=== PATIENT | male | born 1955 | race Caucasian/White ===

== ENCOUNTER 2017-11-23 19:22 | Emergency (ER) | payer SELFPAY ==
[2017-11-23 19:23] VITALS: BP 131/90; PULSE 71; RESP 16; TEMP 36.8; O2SAT 98; BMI 28.3
--- NOTE | 2017-11-23 21:22 | ED.VISSUMM ---
- ER Visit Summary Date of Service: 11/23/17 Chief Complaint: [Injury left eye] History of Present Illness: The patient is a 62 M [presents the emergency department after sustaining an injury to his left eye around 6:30 PM. Patient states he was using a cutting and edging machine when a piece of wood broke off and struck him in the left eye. Patient denies any real visual changes. Patient unsure if he has anything stuck in the eye itself. She is up-to-date on tetanus.] Physical Examination: [HEENT-PERRLA, EOMI. Cranial nerves II through XII grossly intact. TMs clear. Mucous membranes moist. No adenopathy. Left eye-patient does have erythema to the medial aspect of the conjunctiva with small sub-conjunctival hemorrhage. No foreign bodies noted in the conjunctiva. Cardiovascular-regular rate and rhythm without murmur or ectopy Lungs-clear to auscultation, chest wall stable without crepitus or subcu emphysema Abdomen-normoactive bowel sounds, soft, nontender, no rebound or rigidity, no peritoneal signs. Extremities-intact ?4, normal range of motion, normal pulses, atraumatic] Test Results: [Patient's eye pressure was 17 in the left eye.] Emergency Department Course and Treatment: [Left eye-tetracaine was instilled and the eye was stained with floor seen with no evidence of corneal abrasion noted. I do not appreciate any foreign bodies. Eyelids were everted no foreign bodies noted.] I see no evidence of globe rupture or foreign body. Treatment Plan: [Patient was started on gentamicin ophthalmic drops in case was discussed with Dr. Paez who is on for ophthalmology who asked the patient call their office tomorrow to be evaluated.] Disposition: [Discharged home in stable condition.] Impression: [Contusion left eye] This note was generated with [employer] dictation software. It may contain incorrect words, spelling, and punctuation that were not noted in review of the chart prior to signing ED Disposition - Plan for ED Patient: Chief Complaint: Foreign Body Referrals: Justin Garcia III, MD [Primary Care Provider] -
--- NOTE | 2017-11-23 21:26 | ED.DCSUM_ITS ---
- ER Visit Summary Date of Service: 11/23/17 Chief Complaint: [Injury left eye] History of Present Illness: The patient is a 62 M [presents the emergency department after sustaining an injury to his left eye around 6:30 PM. Patient states he was using a cutting and edging machine when a piece of wood broke off and struck him in the left eye. Patient denies any real visual changes. Patient unsure if he has anything stuck in the eye itself. She is up-to-date on tetanus.] Physical Examination: [HEENT-PERRLA, EOMI. Cranial nerves II through XII grossly intact. TMs clear. Mucous membranes moist. No adenopathy. Left eye- patient does have erythema to the medial aspect of the conjunctiva with small sub-conjunctival hemorrhage. No foreign bodies noted in the conjunctiva. Cardiovascular-regular rate and rhythm without murmur or ectopy Lungs-clear to auscultation, chest wall stable without crepitus or subcu emphysema Abdomen-normoactive bowel sounds, soft, nontender, no rebound or rigidity, no peritoneal signs. Extremities-intact ?4, normal range of motion, normal pulses, atraumatic] Test Results: [Patient's eye pressure was 17 in the left eye.] Emergency Department Course and Treatment: [Left eye-tetracaine was instilled and the eye was stained with floor seen with no evidence of corneal abrasion noted. I do not appreciate any foreign bodies. Eyelids were everted no foreign bodies noted.] I see no evidence of globe rupture or foreign body. Treatment Plan: [Patient was started on gentamicin ophthalmic drops in case was discussed with Dr. Paez who is on for ophthalmology who asked the patient call their office tomorrow to be evaluated.] Disposition: [Discharged home in stable condition.] Impression: [Contusion left eye] This note was generated with [employer] dictation software. It may contain incorrect words, spelling, and punctuation that were not noted in review of the chart prior to signing ED Disposition - Plan for ED Patient: Chief Complaint: Foreign Body Referrals: Justin Garcia III, MD [Primary Care Provider] -
--- NOTE | 2017-11-23 21:29 | ED.DEP ---
ED Disposition - Plan for ED Patient: Chief Complaint: Foreign Body Instructions: ED Contusion Eye Referrals: Justin Garcia III, MD [Primary Care Provider] - Marcelino Paez MD [STAFF PHYSICIAN] - 1 Day
[2017-11-23] MEDS: Gentamicin Sulfate 1 OPTH.BTL 2 DRP LEFT EYE (21:41)
[2017-11-23] MEDS: Tetracaine 0.5% Ophthalmic Bottle 1 DRP LEFT EYE (21:42)
== END 2017-11-23 21:43 | disposition home or self-care (01) ==
PROVIDERS: Emergency Provider Emergency Medicine; Family Provider Family Medicine; PCP Family Medicine
DX: S05.12XA Contusion of eyeball and orbital tissues, left eye, initial encounter (principal); W22.8XXA Striking against or struck by other objects, initial encounter; Y93.89 Activity, other specified; Y92.9 Unspecified place or not applicable
CPT/HCPCS: 99283

== ENCOUNTER 2020-05-26 18:33 | Emergency (ER) | payer MEDICARE, BC, SELFPAY ==
[2020-05-26 18:34] VITALS: BP 108/76; PULSE 76; RESP 20; TEMP 37.3; O2SAT 95; BMI 27.8
--- NOTE | 2020-05-26 19:02 | ED.VIS.GEN ---
History of Present Illness Chief Complaint: Fever Informant: Patient Narrative: Patient is a 64-year-old previously healthy male who presents to the emergency department for subjective fever/chills and difficulty urinating. Symptoms have been present over the past 3 days. No known sick contacts. He denies any other infectious symptoms including any headache, neck stiffness, earache, sore throat, cough, diarrhea or skin rash. He denies any hematuria or dysuria. He states it is his difficulty getting a stream started. No known history of prostate issues. He denies any known Covid exposures. He states he did receive both vaccines a few weeks prior. He has been taking aspirin at home for his symptoms which has not been giving much relief. He denies any previous surgeries. Denies smoking, drinking or drug use. Past Medical History - Allergies and Home Meds Allergies/Adverse Reactions: Allergies Penicillins Allergy (Verified 05/26/20 18:38) Anaphylaxis Primary Care Physician: Justin Garcia III, MD [Primary Care Provider] - Oliverio Gregorio MD [STAFF PHYSICIAN] - 1 Day Prior records reviewed: Yes Past Medical History: None Surgical History: no surgical history Smoking Status: Never smoker Review of Systems All systems negative except as indicated General: Reports: Chills, Fever. Denies: Sweats Eyes: Denies: Visual changes - bilaterally, Diplopia ENT: Denies: Rhinorrhea, Sore throat Cardiovascular: Denies: Chest pain, Palpitations Respiratory: Denies: Dyspnea, Cough, Dyspnea on exertion Gastrointestinal: Denies: Abdominal pain, Nausea, Vomiting, Diarrhea Genitourinary: Reports: - - Difficulty urinating. Denies: Dysuria, Hematuria, Frequency Musculoskeletal: Denies: Back pain, Extremity Pain Skin: Denies: Rash, Wounds Neurological: Denies: Headache, Weakness, Numbness Physical Exam Vital Signs/Narrative: Vital Signs Temp Pulse Resp BP Pulse Ox 05/26/20 18:34 99.1 F 76 20 H 108/76 95 Inital Vital Signs reviewed: Yes General: Well nourished, Well developed, No Acute Distress Head: Normocephalic, Atraumatic Eyes: Perrl, EOMI ENT: Moist mucous membranes, No rhinorrhea, TM's clear Neck: Supple, Nontender, No lymphadenopathy Cardiovascular: Regular rate, Regular rhythm, No murmurs Respiratory: No distress, CTA bilaterally Abdomen: Soft, Nontender, Nondistended, Normal bowel sounds Back: Nontender, Normal Inspection. Negative for: CVA tenderness, Spinal tenderness Extremities: Nontender, No edema Skin: Normal color, No rash Neurological: Alert, Normal Strength, Normal Sensation Psychological: Normal affect, Normal Mood Diagnostic/Tx/Re-eval - Medical Decision Making Patient presents to the ED for subjective fevers and chills. He is also having difficulty urinating. Upon arrival to the emergency department he has a temperature of 99.1. The rest of his vitals are within normal limits. He is in no acute distress. No external signs of infection noted. Given the difficulty urinating I did recommend lab work to check blood count as well as electrolyte and kidney function. Will check a urinalysis to evaluate for evidence of infection. Patient did void and only got a few drops of urine out. Post void bladder scan showed approximately 150 cc of urine. That time indwelling Duenas catheter was placed for urinary retention. Did not show any evidence of urinary tract infection on urinalysis. He did get a Covid test done earlier today which was negative and has the PCR test pending. His lab work did not reveal any significant acute abnormality including any high white blood cell count. This time recommend discharge home. He can take ibuprofen and Tylenol for his symptoms. Did advise he monitor his temperature at home. If he develops any symptoms otherwise he can return to the emergency department for further evaluation and management. He is agreeable with this plan. Discharged home in stable condition. He is given urology for follow-up. All questions answered. ED Disposition - Plan for ED Patient: Disposition: Home or Assisted Living Diagnosis: Urinary retention, Subjective fever Instructions: ED FUO Adult, ED Duenas Catheter, Care, ED Urinary Retention, Male Referrals: Justin Garcia III, MD [Primary Care Provider] - Oliverio Gregorio MD [STAFF PHYSICIAN] - 1 Day
[2020-05-26 19:14] LABS: Absolute Lymphocyte Count 0.65 X10^3/uL (0.83-4.51); Absolute Neutrophil Count 8.9 X10^3/uL (2.0-7.7); Basophil# 0.01 X10^3/uL; Basophil% 0.1 % (0-1); Hematocrit 42.8 % (40-54); Hemoglobin 14.6 g/dL (13.0-16.5); Lymphocyte # 0.65 X10^3/ul (4.0); Lymphocyte % 5.8 % (19-41); Mean Corp Hgb Conc 34.1 g/dL (32-36); Mean Corpuscular Hgb 31.5 pg (27.0-32.0); Mean Corpuscular Volume 92.2 fL (80-94); Mean Platelet Vol. 10.8 fl (6.2-12.0); Monocyte# 1.57 X10^3/uL; NRBC Flagged by Analyzer 0 % (0-5); Neutrophil # 8.91 X10^3/uL (2.7-7.7); Neutrophil % 79.7 % (47-70); POSITIVE DIFFERENTIAL YES; Platelet Count 131 K/mm3 (150-450); RBC Distribution Width CV 11.9 % (11.6-14.6); RBC Distribution Width SD 40.6 fl (35.1-43.9); Red Blood Count 4.64 M/mm3 (4.6-6.2); White Blood Count 11.2 K/mm3 (4.4-11.0)
[2020-05-26 19:16] VITALS: BP 114/70; PULSE 69; RESP 19; O2SAT 98
[2020-05-26 19:16] LABS: Differential Indicated SCAN CRITERIA MET
[2020-05-26 19:24] LABS: Anion Gap 7 (5-15); BUN 23 mg/dL (7-18); BUN/Creat Ratio 19.8 RATIO (10-20); Calcium,Total 8.9 mg/dL (8.5-10.1); Chloride 100 mmol/L (98-107); Creatinine, Serum 1.16 mg/dL (0.70-1.30); EST Glomerular Filtration Rate 67 mL/min (>60); Est Glom Filt Rate - Afr Amer 81 mL/min (>60); Estimated Creatinine Clearance 71.75 ml/min; Glucose 132 mg/dL (74-106); Potassium 3.8 mmol/L (3.5-5.1); Sodium Level 134 mmol/L (136-145)
[2020-05-26 19:43] VITALS: BP 114/70; PULSE 86; RESP 19; TEMP 37.3; O2SAT 98
[2020-05-26 19:46] LABS: Differential Comment SCANNED
[2020-05-26 19:51] LABS: Color, Urine Yellow (Yellow); Glucose, Dipstick Normal (Normal); Ketone-Dipstick 15 mg/dl (Negative); Leukocyte Esterase-Dipstick 25 /ul (Negative); Nitrite-Dipstick Negative (Negative); Occult Blood-Urine 25 /ul (Negative); Protein-Dipstick 100 mg/dl (Negative); Urine Bilirubin Dipstick Negative (Negative); Urine Clarity Sl. Cloudy (Clear); Urine Urobilinogen 1 mg/dl (Normal)
[2020-05-26 19:57] LABS: Red Blood Cells-Urine 0-5 SEEN /hpf (0-5); White Blood Cells 0-5 SEEN /hpf (0-5)
[2020-05-26 19:58] LABS: Squamous Epithelial Cells - UA 0-5 SEEN /hpf (0-5)
[2020-05-26 19:59] LABS: Bacteria RARE /hpf (None Seen); Mucous, Urine 1+ /hpf (<or=2+)
[2020-05-26 20:00] LABS: Renal Epithelial Cells 0 SEEN /hpf (0-5)
[2020-05-26 20:07] VITALS: BP 101/58; PULSE 86; RESP 19; TEMP 37.2; O2SAT 97
[2020-05-26 20:28] VITALS: BP 110/70; PULSE 78; RESP 19; TEMP 37.2; O2SAT 97
[2020-05-27 13:46] LABS: Pathologist Review Reviewed
== END 2020-05-26 20:32 | disposition home or self-care (01) ==
PROVIDERS: Emergency Provider Emergency Medicine; PCP Family Medicine
DX: R33.9 Retention of urine, unspecified (principal); R50.9 Fever, unspecified
CPT/HCPCS: 51702; 80048; 81001; 85025; 99283; A4216

== ENCOUNTER 2021-03-11 14:21 | Inpatient (IN) | payer MEDICARE, BC, SELFPAY ==
[2021-03-11] VITALS (8 sets, daily range): BP systolic 98–119; BP diastolic 68–71; PULSE 75–96; RESP 16–20; TEMP 36.9–39; O2SAT 96–97; BMI 28.3; BMI 28.2
--- NOTE | 2021-03-11 14:46 | EX.ED.DYSGE1 ---
HPI History of Present Illness Chief Complaint: Fever Informant: patient Narrative Narrative: Reports fatigue 2 days ago yesterday nausea and vomiting x1 and dysuria. Today at urgent care additional vomiting. No hematemesis. Nonbloody stools. No sick contacts. No cough. No loss of taste or smell. Reports fever today at urgent care, no antipyretics taken. States COVID vaccinated with the booster this past December. Also has had influenza vaccination. Reports myalgias. Reports history of prostatitis last year however had pain with bowel movements then. Denies any pain currently. Has follow-up up with Dr. Gallo. Allergy to penicillin causing anaphylaxis. Denies taking any daily medications. [facility] Medical History (Updated 03/11/21 @ 23:[address] Sandip Gentile DO) BPH (benign prostatic hyperplasia) Home Medications NK 05/26/20 [History Last Taken Unknown] Allergy/AdvReac Type Severity Reaction Status Date / Time Penicillins Allergy Anaphylaxis Verified 05/26/20 18:38 Social History (Updated 03/11/21 @ 17:[address] Renetta Posey DO) Smoking Status: Never smoker alcohol intake: current details: 2-3 beers nightly substance use type: does not use ROS ROS ED Constitutional Constitutional ED: Reports fever(s); Denies chills or sweats Eyes Eyes: Denies change in vision ENT ENT ED: Denies dysphagia or sore throat Cardiovascular Cardiovascular: Denies chest pain, leg edema, palpitations or racing heartbeat Respiratory/Chest Respiratory/Chest: Denies cough, dyspnea or dyspnea on exertion Gastrointestinal Gastrointestinal: Reports diarrhea, nausea and vomiting; Denies abdominal pain Genitourinary Genitourinary ED: Reports dysuria; Denies hematuria or urinary frequency Musculoskeletal Musculoskeletal: Denies back pain, extremity pain or neck pain Integumentary Denies rash or wounds Neurologic Neurologic: Denies headache(s), paresthesias or weakness EXAM Physical Exam Const Vital Signs: 03/11/21 14:22 03/11/21 15:04 03/11/21 16:25 Temperature 98.5 F 102.2 F H Temperature Source Temporal Oral Pulse Rate 93 Respiratory Rate 16 Respiratory Effort Normal Non-Labored Blood Pressure 98/70 Blood Pressure Mean 79 Pulse Ox 97 Oxygen Delivery Method Room Air 03/11/21 16:55 Temperature 102.2 F H Temperature Source Oral Pulse Rate 95 Respiratory Rate 18 Respiratory Effort Blood Pressure 110/68 Blood Pressure Mean 82 Pulse Ox 96 Oxygen Delivery Method Room Air Positive well nourished and well developed General Appearance ED: well developed and NAD HEENT Reports dry mucous membranes normocephalic and atraumatic Mouth ED: Yes dry mucous membranes Mouth: dry mucous membranes Eyes PERRL, EOMs intact bilaterally and conjunctivae normal General Eye ED: Yes normal appearance of both eyes Neck no lymphadenopathy and supple General: Negative for tenderness Chest Wall Chest: Negative for tenderness Resp normal respiratory effort and normal air movement Effort and Inspection: symmetric chest movement; Negative for respiratory distress Cardio regular rate, regular rhythm and no murmurs Peripheral Pulses: pulses 2+ throughout GI normal to inspection, nondistended, normoactive bowel sounds and non-tender Palpation: Negative for guarding or rebound tenderness present Back/Spine no CVA tenderness and no thoracic nor lumbar tenderness Extremity normal to inspection General Extremety ED: Negative for edema or tenderness General Extremity: Negative for edema Neuro oriented x3 and no sensory deficits noted Sensorium / Orientation: awake and alert Skin no rashes or lesions noted and no wounds MDM MDM MDM Narrative Medical decision making narrative: Patient presenting with dysuria fatigue myalgias and subjective fevers. He is COVID vaccinated with influenza vaccination. I did check both which returned negative. White count returned at 24.6. Creatinine at 1.7. Urine did note infections culture sent. Lactic acid blood cultures added. Lactic acid returned at 2.5. He is meeting severe sepsis criteria. He denies any pain with bowel movements for concerns of prostatitis at this time. This is his symptoms last year. Blood pressure borderline on arrival at 90/70 with fluids he is improving. Spiked a fever of 102 in the ED he was given Tylenol. Anaphylaxis to penicillin therefore was given Levaquin IV. I spoke with hospitalist Dr. Norris for admission to PCU. He is stable for the medical floor. Lab Data Attestation: I reviewed the patient's lab results. Labs: Laboratory Results - last 24 hr 03/11/21 03/11/21 03/11/21 14:53 14:53 16:17 WBC 24.6 H RBC 4.41 L Hgb 13.9 Hct 40.7 MCV 92.3 MCH 31.5 MCHC 34.2 RDW Std Deviation 43.5 RDW Coeff of Jj 13.0 Plt Count 145 L MPV 11.0 Immature Gran % (Auto) 3.900 H Neut % (Auto) 87.4 H Lymph % (Auto) 2.2 L [place] % (Auto) 6.3 Eos % (Auto) 0.0 Baso % (Auto) 0.2 Absolute Neuts (auto) 21.5 H Absolute Lymphs (auto) 0.54 L Nucleated RBC % 0 Sodium 137 Potassium 4.4 Chloride 102 Carbon Dioxide 27.0 Anion Gap 8 BUN 22 H Creatinine 1.74 H Estim Creat Clear Calc 47.20 Est GFR (MDRD) Af Amer 51 L Est GFR (MDRD) Non-Af 42 L BUN/Creatinine Ratio 12.6 Glucose 107 H Lactic Acid Calcium 8.7 Urine Color Yellow Urine Clarity Clear Urine pH 6.0 Ur Specific [place] 1.015 Urine Protein 100 H Urine Glucose (UA) Normal Urine Ketones Negative Urine Occult Blood 150 H Urine Nitrite Positive H Urine Bilirubin Negative Urine Urobilinogen Normal Ur Leukocyte Esterase 100 H Urine RBC 0-5 SEEN Urine WBC 10-25 SEEN Ur Squamous Epith Cells 0-5 SEEN Urine Bacteria 2+ Urine Mucus 0 SEEN 03/11/21 16:17 WBC RBC Hgb Hct MCV MCH MCHC RDW Std Deviation RDW Coeff of Jj Plt Count MPV Immature Gran % (Auto) Neut % (Auto) Lymph % (Auto) [place] % (Auto) Eos % (Auto) Baso % (Auto) Absolute Neuts (auto) Absolute Lymphs (auto) Nucleated RBC % Sodium Potassium Chloride Carbon Dioxide Anion Gap BUN Creatinine Estim Creat Clear Calc Est GFR (MDRD) Af Amer Est GFR (MDRD) Non-Af BUN/Creatinine Ratio Glucose Lactic Acid 2.5 H* Calcium Urine Color Urine Clarity Urine pH Ur Specific [place] Urine Protein Urine Glucose (UA) Urine Ketones Urine Occult Blood Urine Nitrite Urine Bilirubin Urine Urobilinogen Ur Leukocyte Esterase Urine RBC Urine WBC Ur Squamous Epith Cells Urine Bacteria Urine Mucus Critical Care Time Critical Care Time: Yes Critical care time (excluding procedures): 30-74 minutes, Discussing w/Consultants, Arranging Admission or Transfer, Performing Direct Patient Care at Bedside and - (41 minutes) Discharge Plan Dx/Rx/DC Orders Clinical Impression: Severe sepsis, UTI (urinary tract infection), LUC (acute kidney injury), Fever Disposition Disposition: Acute Care [facility] Discharge Date/Time: 03/11/21 18:32
[2021-03-11] MEDS: 0.9% Normal Saline 1,000 ML 1000 ML IV (14:55)
[2021-03-11 15:03] LABS: Absolute Lymphocyte Count 0.54 X10^3/uL (0.83-4.51); Absolute Neutrophil Count 21.5 X10^3/uL (2.0-7.7); Basophil# 0.04 X10^3/uL; Basophil% 0.2 % (0-1); Hematocrit 40.7 % (40-54); Hemoglobin 13.9 g/dL (13.0-16.5); Lymphocyte # 0.54 X10^3/ul (0.83-4.51); Lymphocyte % 2.2 % (19-41); Mean Corp Hgb Conc 34.2 g/dL (32-36); Mean Corpuscular Hgb 31.5 pg (27.0-32.0); Mean Corpuscular Volume 92.3 fL (80-94); Monocyte# 1.54 X10^3/uL; Monocyte% 6.3 % (0-10); NRBC Flagged by Analyzer 0 % (0-5); Neutrophil # 21.51 X10^3/uL (2.7-7.7); Neutrophil % 87.4 % (47-70); POSITIVE DIFFERENTIAL YES; Platelet Count 145 K/mm3 (150-450); RBC Distribution Width SD 43.5 fl (35.1-43.9); Red Blood Count 4.41 M/mm3 (4.6-6.2); White Blood Count 24.6 K/mm3 (4.4-11.0)
[2021-03-11 15:18] LABS: Anion Gap 8 (5-15); BUN 22 mg/dL (7-18); BUN/Creat Ratio 12.6 RATIO (10-20); Calcium,Total 8.7 mg/dL (8.5-10.1); Chloride 102 mmol/L (98-107); Creatinine, Serum 1.74 mg/dL (0.70-1.30); EST Glomerular Filtration Rate 42 mL/min (>60); Est Glom Filt Rate - Afr Amer 51 mL/min (>60); Glucose 107 mg/dL (74-106); Potassium 4.4 mmol/L (3.5-5.1); Sodium Level 137 mmol/L (136-145)
--- NOTE | 2021-03-11 16:14 | CM.ED ---
SW Note Referral Source: Case Find Referral Reason: No PCP SW met with patient. Patient has no PCP. SW provided patient with [facility] Healthcare Provider Directory and encouraged him to contact MD for primary care provider. No further SW needs. SW remains available. Carla ZAPATA
[2021-03-11 16:27] LABS: Mucous, Urine 0 SEEN /hpf (<or=2+)
[2021-03-11 16:31] LABS: Color, Urine Yellow (Yellow); Glucose, Dipstick Normal (Normal); Ketone-Dipstick Negative (Negative); Leukocyte Esterase-Dipstick 100 /ul (Negative); Nitrite-Dipstick Positive (Negative); Occult Blood-Urine 150 /ul (Negative); Protein-Dipstick 100 mg/dl (Negative); Specific Gravity, Urine 1.015 (1.002-1.030); Urine Bilirubin Dipstick Negative (Negative); Urine Clarity Clear (Clear); Urine Urobilinogen Normal (Normal)
[2021-03-11 16:39] LABS: Red Blood Cells-Urine 0-5 SEEN /hpf (0-5); White Blood Cells 10-25 SEEN /hpf (0-5)
[2021-03-11 16:40] LABS: Bacteria 2+ /hpf (None Seen); Squamous Epithelial Cells - UA 0-5 SEEN /hpf (0-5)
[2021-03-11] MEDS: Acetaminophen 500 MG Tablet 1000 MG PO (16:52)
[2021-03-11] MEDS: levoFLOXacin IV 750 MG/150 ML BAG 100 MG IV (16:52)
[2021-03-11 16:57] LABS: Lactic Acid 2.5 mmol/L (0.4-1.9)
[2021-03-11] MEDS: 0.9% Normal Saline 1,000 ML 150 ML IV (17:21)
--- NOTE | 2021-03-11 17:21 | NURSING ---
PCU KELBY SEVERE SEPSIS, LUC, UTI
[2021-03-11] MEDS: Ondansetron 4 MG/2 ML Vial IV (17:22)
--- NOTE | 2021-03-11 17:27 | PCM.HP.STD ---
HPI - General General Date of Admission: 03/11/21 Date of Service: 03/11/21 Chief Complaint: Dysuria HPI Narrative HEATH MAK, is a 65 M who presented to the emergency department [facility] on 03/11/2021 after being sent here from urgent care. He reports that he had a fever when he presented to urgent care and therefore they instructed him to come to the emergency department. He complains of 2 days of fatigue with nausea and vomiting x2 and dysuria that started last evening. He had an additional episode of emesis at the urgent care prior to presentation. He has had fever and chills within the last 24 hours. His is at the bedside upon presentation and she notes that he is mildly fogged and slightly impaired from a cognition standpoint. He has been vaccinated for COVID and boosted in December. He complains of no abdominal pain or pressure but does complain of significant dysuria. He states that he has difficulty emptying his bladder at times at baseline and urinary frequency and that he does have a follow-up with Dr. Gallo pending. He takes no medications at baseline and really has no baseline medical issues. He does have an allergy to penicillin remotely that caused anaphylaxis. In the emergency department he had a T-max of 102.2 his heart rate was in the upper 90s, his initial blood pressure was 98/70 but after a liter of IV fluids his blood pressure improved to 110/68. His respiratory rate was normal with an oxygen saturation of 96% on room air. He had a marked leukocytosis on his CBC with a white count of 24.6 and a left shift was present. He also had a mild thrombocytopenia with a platelet count of 145. His BMP showed normal electrolytes but an elevated BUN at 22 and a serum creatinine of 1.74. These are drastically above his baseline of his second creatinine of 1-1.2. His lactic acid was mildly elevated at 2.5. UA was performed and is consistent with a urinary tract infection showing nitrites, leukoesterase, white cells, and bacteria. His rapid COVID was negative. In the emergency department he was treated with levofloxacin given his previous anaphylaxis with penicillins and request for admission was made. [facility] Medical History (Updated 03/11/21 @ 17:[address] Renetta Posey, ) BPH (benign prostatic hyperplasia) Home Medications NK 05/26/20 [History Last Taken Unknown] Allergy/AdvReac Type Severity Reaction Status Date / Time Penicillins Allergy Anaphylaxis Verified 05/26/20 18:38 Social History (Updated 03/11/21 @ 17:[address] Renetta Posey DO) Smoking Status: Never smoker alcohol intake: current details: 2-3 beers nightly substance use type: does not use ROS Constitutional Constitutional: Reports chills, fatigue, malaise and weakness; Denies anorexia, change in weight, fever(s), night sweats or other Eyes Eyes: Denies blurry vision, change in eye color, change in vision, discharge from eye(s), double vision, erythema, eye pain, loss of vision or other ENT HEENT: Denies abnormal hearing, dysphagia, ear pain, epistaxis, headache(s), hearing loss, nasal congestion, nasal discharge, post nasal drip, sinus pressure, sore throat or other Cardiovascular Cardiovascular: Denies chest pain, claudication, dyspnea on exertion, edema, lightheadedness, orthopnea, palpitations, paroxysmal nocturnal dyspnea, rapid heart rate, syncope or other Respiratory/Chest Respiratory/Chest: Denies cough, dyspnea, excessive phlegm production, hemoptysis, productive cough, shortness of breath at rest, shortness of breath with exertion, wheezing or other Gastrointestinal Gastrointestinal: Reports diarrhea, nausea and vomiting; Denies abdominal pain, coffee ground emesis, constipation, dyspepsia, hematemesis, hematochezia, loose stools, melena or other Genitourinary Genitourinary: Reports burning urination, difficulty urinating, dysuria, urinary frequency, urinary hesitancy and urinary urgency; Denies hematuria, nocturia, urinary incontinence or other Musculoskeletal Musculoskeletal: Reports myalgias; Denies arthralgias, back pain, joint pain, joint stiffness, joint swelling, neck pain or other Neurologic Neurologic: Reports confusion; Denies abnormal gait, abnormal speech, disequilibrium, dizziness, focal weakness, headache(s), numbness, paresthesias, seizure-like activity, seizures, syncope, tingling, tremor(s) or other Psychiatric Psychiatric: Denies anxiety, depression, homicidal ideation, suicidal ideation or other Endocrine Endocrinology: Denies change in body appearance, cold intolerance, excessive sweating, heat intolerance, polydipsia, polyuria or other Hematologic/Lymphatic Hematologic/Lymphatic: Denies anemia, easy bleeding, easy bruising, lymphadenopathy or other Allergic/Immunologic Allergic/Immunologic: Denies rhinitis, hives, eczemia, asthma or other Vital Signs Vital Signs Vital Signs: 03/11/21 14:22 03/11/21 15:04 03/11/21 16:25 Temperature 98.5 F 102.2 F H Temperature Source Temporal Oral Pulse Rate 93 Respiratory Rate 16 Respiratory Effort Normal Non-Labored Blood Pressure 98/70 Blood Pressure Mean 79 Pulse Ox 97 Oxygen Delivery Method Room Air 03/11/21 16:55 Temperature 102.2 F H Temperature Source Oral Pulse Rate 95 Respiratory Rate 18 Respiratory Effort Blood Pressure 110/68 Blood Pressure Mean 82 Pulse Ox 96 Oxygen Delivery Method Room Air Weight Weight: 97.522 kg Body Mass Index (BMI) 28.3 Physical Exam Const alert, oriented x3, no apparent distress, healthy appearing and well nourished Constitutional Narrative: Overweight upper middle-aged white male lying in bed, alert and oriented x3 but responses are somewhat delayed and states he is mildly confused, nontoxic but appears ill HEENT normocephalic, head/scalp atraumatic, hearing grossly normal bilaterally and oropharynx normal HEENT Narrative: Oropharynx is dry, dentition is good, Mallampati is 2 Eyes PERRL, EOMs intact bilaterally and conjunctivae normal Eyes Narrative: No scleral icterus Neck no lymphadenopathy, supple, no JVD and no carotid bruits Neck Narrative: Trachea is midline, no thrush Resp normal respiratory effort, no retractions, no use of accessory muscles and clear to auscultation bilaterally Auscultation: Negative for crackles, rales, rhonchi or wheezes Cardio regular rate, regular rhythm, S1 normal heart sound, S2 normal heart sound, no murmurs, no rub, no gallops, no clicks and no JVD GI normal to inspection, nondistended, normoactive bowel sounds, soft to palpation, non-tender and non-distended; Negative for hepatosplenomegaly Extremity no clubbing, cyanosis or edema Peripheral Pulses: Yes pulses 2+ throughout Skin no rashes or lesions noted, no wounds, skin turgor normal, no jaundice, no petechiae and no mottling Neuro oriented x3, CN's II-XII intact bilaterally and moves all extremities Neuro Narrative: Mild generalized weakness Sensorium / Orientation: awake and alert Speech: speech normal Psych affect normal Psych Narrative: Very pleasant Results Lab / Micro Data Attestation: I reviewed the patient's lab results. Result Diagrams: 03/11/21 14:53 03/11/21 14:53 Labs: Laboratory Results - last 24 hr 03/11/21 14:53: WBC 24.6 H, RBC 4.41 L, Hgb 13.9, Hct 40.7, MCV 92.3, MCH 31.5, MCHC 34.2, RDW Std Deviation 43.5, RDW Coeff of Jj 13.0, Plt Count 145 L, MPV 11.0, Immature Gran % (Auto) 3.900 H, Neut % (Auto) 87.4 H, Lymph % (Auto) 2.2 L, [place] % (Auto) 6.3, Eos % (Auto) 0.0, Baso % (Auto) 0.2, Absolute Neuts (auto) 21.5 H, Absolute Lymphs (auto) 0.54 L, Nucleated RBC % 0 03/11/21 14:53: Sodium 137, Potassium 4.4, Chloride 102, Carbon Dioxide 27.0, Anion Gap 8, BUN 22 H, Creatinine 1.74 H, Estim Creat Clear Calc 47.20, Est GFR (MDRD) Af Amer 51 L, Est GFR (MDRD) Non-Af 42 L, BUN/Creatinine Ratio 12.6, Glucose 107 H, Calcium 8.7 03/11/21 16:17: Urine Color Yellow, Urine Clarity Clear, Urine pH 6.0, Ur Specific [place] 1.015, Urine Protein 100 H, Urine Glucose (UA) Normal, Urine Ketones Negative, Urine Occult Blood 150 H, Urine Nitrite Positive H, Urine Bilirubin Negative, Urine Urobilinogen Normal, Ur Leukocyte Esterase 100 H, Urine RBC 0-5 SEEN, Urine WBC 10-25 SEEN, Ur Squamous Epith Cells 0-5 SEEN, Urine Bacteria 2+, Urine Mucus 0 SEEN 03/11/21 16:17: Lactic Acid 2.5 H* Micro: Microbiology 03/11/21 15:37 Mucosa - Nose Influenza Types A,B Direct FA (BRERY) - Final 03/11/21 14:40 Nasal Secretion SARS-CoV-2 Antigen (Rapid) - Final Assessment & Plan Assessment/Plan (1) Sepsis: (2) UTI (urinary tract infection): (3) LUC (acute kidney injury): (4) Leukocytosis: (5) Lactic acidosis: (6) Fever: (7) Metabolic encephalopathy: (8) BPH (benign prostatic hyperplasia): PLAN: Sepsis secondary to urinary tract infection -Patient presents with elevated lactic acid, relative hypotension, leukocytosis, fever, confusion, LUC consistent with sepsis -UA is consistent with infection -Urine culture and blood cultures are pending -Levaquin given in the emergency department -30cc/kg body weight--> was given 1 L already in the emergency department and therefore will complete with 2 L on the floor -Continue IV fluids at 70 cc an hour after boluses given -Will check retroperitoneal ultrasound -Outpatient will need pressors as his blood pressures are improving with volume resuscitation Lactic acidosis -Should resolve with volume resuscitation -Blood pressures are improving with IV fluids LUC -Baseline serum creatinine is between 1 and 1.2 -Current creatinine is 1.75 -Fluid boluses and maintenance fluid ordered for following boluses -Repeat BMP in a.m. -If not improved consider Duenas catheter for retention -We will check retroperitoneal ultrasound given LUC and UTI Metabolic encephalopathy -Mild -Likely related to acute infection -Should resolve with treatment and time Leukocytosis -See above -CBC in a.m. Suspected BPH -We will start Flomax -Check postvoid residual -Patient does have outpatient follow-up with Dr. Gallo per notes -? if actually Jg DVT prophylaxis -Heparin with current renal function -SCDs CODE STATUS -Full code Charges/Coding Visit Charges Inpatient E&M: 73221 Init Hosp L3
--- NOTE | 2021-03-11 17:40 | CASEMGMT ---
ADAN CM to room to meet with patient for initial transition planning/care coordination assessment. ADAN LYNCH introduced self and role at [facility]. Patient voices understanding and consents to assessment at this time. Patient's girlfriend Erin present at bedside. Patient is alert and oriented and answers all questions appropriately. Care providers, pharmacy, and demographics verified/updated at this time. PCP: Danna, states previous PCP retired. SW provided patient with [facility] Healthcare Provider Directory. Specialists: Danna Preferred Pharmacy: [facility] Insurance: Medicare & [employer] Prescription Benefit: yes Living Will/HPOA: Patient denies having LW or HPOA. 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 Patient states independent with ADLs prior to hospitalization. Smoking/ETOH: Never smoker, admits to drinking 3 beers per day Transportation: Patient drives self and denies transportation concerns. DME/HHC/SNF: Patient denies having any DME in home and denies any need for DME. Denies previous HHC or SNF stays. Patient has no concerns with going home at time of discharge. CM to follow for any discharge planning/needs. Patient voices no concerns/needs at this time. Advised patient to ask for CM if any questions/concerns/needs arise. Voices understanding. Plan: home
--- NOTE | 2021-03-11 19:23 | US_ITS ---
EXAM: US Retroperitoneal Limited, Renal CLINICAL INDICATION: 65 years old, Male; LUC- and RETENTION TECHNIQUE: Limited grayscale and color Doppler sonographic evaluation of the retroperitoneum was performed. This report was created using [employer] report [email or web address] technology. COMPARISON: None. FINDINGS: Right kidney: Unremarkable. No hydronephrosis. No shadowing calculus. No perinephric collection is demonstrated. The right kidney measures 13.4 cm in length. Left kidney: Unremarkable. No hydronephrosis. No shadowing calculus. No perinephric collection is demonstrated. The left kidney measures 12.3 cm in length. Bladder: Prevoid bladder volume is 189 and postvoid volume is 87 consistent with a post void residual. Bladder wall is somewhat trabeculated which may be due to a chronic outlet obstruction. US/Kidney and Bladder IMPRESSION: Prevoid bladder volume is 189 and postvoid volume is 87 consistent with a post void residual. Bladder wall is somewhat trabeculated which may be due to a chronic outlet obstruction. Electronically Signed: Lucas Alonso MD at 23:26 EST Tel , Service support ,
[2021-03-11 20:25] LABS: Reflex Lactate? Y
[2021-03-11] MEDS: 0.9% Normal Saline 1,000 ML 999 ML IV ×2 (21:43)
[2021-03-11 22:56] LABS: Lactic Acid 2.3 mmol/L (0.4-1.9)
[2021-03-11] MEDS: 0.9% Normal Saline 1,000 ML 75 ML IV (23:30)
[2021-03-12] VITALS (12 sets, daily range): BP systolic 107–125; BP diastolic 68–85; PULSE 81–97; RESP 16–20; TEMP 36.7–38.4; O2SAT 94–98
[2021-03-12] MEDS: Ondansetron 4 MG/2 ML Vial IV (00:55)
[2021-03-12] MEDS: Acetaminophen 325 MG Tablet 650 MG PO ×4 (00:55→20:01)
[2021-03-12 06:33] LABS: Hematocrit 37.8 % (40-54); Hemoglobin 12.5 g/dL (13.0-16.5); Mean Corp Hgb Conc 33.1 g/dL (32-36); Mean Corpuscular Hgb 31.3 pg (27.0-32.0); Mean Corpuscular Volume 94.7 fL (80-94); Mean Platelet Vol. 11.1 fl (6.2-12.0); POSITIVE COUNT YES; POSITIVE DIFFERENTIAL YES; POSITIVE MORPHOLOGY YES; Platelet Count 99 K/mm3 (150-450); RBC Distribution Width CV 13.2 % (11.6-14.6); RBC Distribution Width SD 45.3 fl (35.1-43.9); Red Blood Count 3.99 M/mm3 (4.6-6.2); White Blood Count 16.3 K/mm3 (4.4-11.0)
[2021-03-12 06:49] LABS: Differential Indicated MANUAL DIFF
[2021-03-12 06:56] LABS: ALB/GLOB Ratio 0.7 RATIO (0.9-2.4); AST(SGOT) 28 U/L (15-37); Alanine Aminotransfer ALT/SGPT 28 U/L (16-61); Albumin, Serum 2.5 g/dL (3.2-5.0); Alkaline Phosphatase 31 U/L (45-117); Anion Gap 6 (5-15); BUN 22 mg/dL (7-18); BUN/Creat Ratio 15.7 RATIO (10-20); Calcium,Total 7.7 mg/dL (8.5-10.1); Chloride 111 mmol/L (98-107); EST Glomerular Filtration Rate 54 mL/min (>60); Est Glom Filt Rate - Afr Amer 65 mL/min (>60); Estimated Creatinine Clearance 58.66 ml/min; Globulin 3.5 g/dL (2.2-4.2); Glucose 114 mg/dL (74-106); Magnesium 1.4 mg/dL (1.6-2.6); Phosphorus 2.7 mg/dL (2.5-4.9); Potassium 3.8 mmol/L (3.5-5.1); Sodium Level 138 mmol/L (136-145)
[2021-03-12 07:04] LABS: Absolute Lymphocyte Count 0.98 X10^3/uL (0.83-4.51); Absolute Neutrophil Count 13.2 X10^3/uL (2.0-7.7); Neutrophil-Segmented 54 % (47-70); Total Cells Counted 100 (MANUAL DIFF)
[2021-03-12 07:05] LABS: Lymphocyte 6 % (19-41); Metamyelocyte 4 % (0-1); Monocyte 7 % (0-10); Myelocyte 2 % (0-0); Neutrophil-Band 27 % (0-5); Platelet Estimate MOD DEC (ADEQ); Red Cell Morphology NORM C+C NORMAL (NORM C&C)
--- NOTE | 2021-03-12 07:08 | PCS.PANDOC ---
PANDEMIC DOCUMENTATION INITIATED: Date: 10/14/2020 Time: 190
--- NOTE | 2021-03-12 08:04 | PCM.RX.CS ---
Consult Pharmacy has been consulted to manage selected antiobiotic: Vancomycin Type of Consult: New start Suspected Infection: Sepsis Prior Doses of Antibiotics Received/Current Regimen: 2Gm iv x 1 on 03.12.21 @0634. Labs: Sodium 138 mmol/L (136-145) 03/12/21 05:58 Potassium 3.8 mmol/L (3.5-5.1) 03/12/21 05:58 Chloride 111 mmol/L (98-107) H 03/12/21 05:58 Carbon Dioxide 21.0 mmol/L (21.0-32.0) 03/12/21 05:58 Anion Gap 6 (5-15) 03/12/21 05:58 BUN 22 mg/dL (7-18) H 03/12/21 05:58 Creatinine 1.40 mg/dL (0.70-1.30) H 03/12/21 05:58 Est GFR (MDRD) Af Amer 65 mL/min (>60) 03/12/21 05:58 Est GFR (MDRD) Non-Af 54 mL/min (>60) L 03/12/21 05:58 BUN/Creatinine Ratio 15.7 RATIO (10-20) 03/12/21 05:58 Glucose 114 mg/dL (74-106) H 03/12/21 05:58 Microbiology: Microbiology 03/11/21 16:17 Blood Culture (Wb) - Anticubital Left Blood Culture - Preliminary 03/11/21 16:29 Blood Culture (Wb) - Anticubital Right Blood Culture - Preliminary 03/11/21 15:37 Mucosa - Nose Influenza Types A,B Direct FA (BERRY) - Final 03/11/21 14:40 Nasal Secretion SARS-CoV-2 Antigen (Rapid) - Final Weight used for dosin kg Estimated Creatinine Clearance: 59 ml/min Goal Trough: 15-20 mcg/mL Pharmacy Plan for Drug Dosing: Renal function improved from Cr 1.7 to 1.4. Will start 1gm iv q12h per protocol with trough level ordered for before 4th dose. Pharmacy Service will continue to monitor and adjust dosing as required. Follow-Up Labs: Trough Vancomycin - 03.13.21 @1730 before 1800 dose
[2021-03-12] MEDS: Heparin Injection (Vial) 5,000 UNIT/ML VIAL 5000 UNIT SC (10:02)
[2021-03-12] MEDS: levoFLOXacin IV 750 MG/150 ML BAG 100 MG IV (10:03)
[2021-03-12 13:23] LABS: PSA,Total- Diagnostic 3.33 ng/mL (0.0-4.0)
[2021-03-12 13:26] LABS: Pathologist Review Reviewed
[2021-03-12] MEDS: Vancomycin IV 1,000 MG/200 ML BAG 200 MG IV (16:59)
[2021-03-12] MEDS: 0.9% Normal Saline 1,000 ML 125 ML IV (18:04)
--- NOTE | 2021-03-12 20:00 | PN.HOSP_ITS ---
Subjective Subjective Patient was seen and examined today, talked at length with his ex-girlfriend who was in the room and she helps him out with different matters as an outpatient. Patient has been sick since Wednesday and was admitted yesterday for severe sepsis stemming from acute cystitis. Patient's white count today is 16.3, blood c ulture grew out staph aureus-urine culture also grew out Staphylococcus. Sensitivities are not back at this time. Patient is on Levaquin and vancomycin Objective Data Objective Data Vital Signs: Vital Signs Temp Pulse Resp BP Pulse Ox 98.6 F 89 16 107/74 96 03/12/21 15:41 03/12/21 15:41 03/12/21 15:41 03/12/21 15:41 03/12/21 15:41 Oxygen Delivery Method Room Air Weight: 97 kg Body Mass Index (BMI) 28.2 Intake & Output: Intake and Output for Last 24 Hours 03/10/21 03/11/21 03/12/21 23:59 23:59 23:59 Intake Total 2547.5 / 2547.5 3680.00 / 3680.00 Output Total 300 / 300 Balance 2547.5 / 2547.5 3380.00 / 3380.00 Lab / Micro Data Result Diagrams: 03/13/21 10:12 03/12/21 05:58 Labs: Laboratory Results - last 24 hr 03/11/21 21:35: Lactic Acid 2.3 H* 03/12/21 05:58: WBC 16.3 H, RBC 3.99 L, Hgb 12.5 L, Hct 37.8 L, MCV 94.7 H, MCH 31.3, MCHC 33.1, RDW Std Deviation 45.3 H, RDW Coeff of Jj 13.2, Plt Count 99 L , MPV 11.1, Neut % (Auto) Not Reportable, Absolute Neuts (auto) 13.2 H, Absolute Lymphs (auto) 0.98, Total Counted 100, Neutrophils % (Manual) 54, Band Neutrophils % 27 H, Lymphocytes % (Manual) 6 L, Monocytes % (Manual) 7, Metamyelocytes % 4 H, Myelocytes % 2 H, Diff Path Review Reviewed, Platelet Estimate MOD DEC, RBC Morphology NORM C+C 03/12/21 05:58: Sodium 138, Potassium 3.8, Chloride 111 H, Carbon Dioxide 21.0, Anion Gap 6, BUN 22 H, Creatinine 1.40 H, Estim Creat Clear Calc 58.66, Est GFR (MDRD) Af Amer 65, Est GFR (MDRD) Non-Af 54 L, BUN/Creatinine Ratio 15.7, Glucose 114 H, Calcium 7.7 L, Phosphorus 2.7, Magnesium 1.4 L, Total Bilirubin 0.90, AST 28, ALT 28, Alkaline Phosphatase 31 L, Total Protein 6.0 L, Albumin 2.5 L, Globulin 3.5, Albumin/Globulin Ratio 0.7 L 03/12/21 05:58: Total PSA 3.33 Micro: Microbiology 03/11/21 16:17 Urine, Clean Catch Urine Culture - Preliminary Staphylococcus species 03/11/21 16:17 Blood Culture (Wb) - Anticubital Left Bacteria Detection (PCR) - Final Staphylococcus aureus 03/11/21 16:17 Blood Culture (Wb) - Anticubital Left Blood Culture - Preliminary Staphylococcus aureus 03/11/21 16:29 Blood Culture (Wb) - Anticubital Right Blood Culture - Preliminary 03/11/21 15:37 Mucosa - Nose Influenza Types A,B Direct FA (BERRY) - Final 03/11/21 14:40 Nasal Secretion SARS-CoV-2 Antigen (Rapid) - Final Radiography Diagnostic Testing: Radiology Impression Renal Ultrasound 03/11/21 19:23 IMPRESSION: Prevoid bladder volume is 189 and postvoid volume is 87 consistent with a post void residual. Bladder wall is somewhat trabeculated which may be due to a chronic outlet obstruction. Electronically Signed: Lucas Alonso MD at 23:26 EST Tel , Service support , Physical Exam Const alert, oriented x3 and no apparent distress Constitutional Narrative: Patient appears fatigued General Appearance: cooperative, well kempt and well developed Orientation / Consciousness: awake, oriented to person, oriented to place and oriented to time HEENT normocephalic, head/scalp atraumatic and moist oral mucous membranes Head and Scalp: normocephalic Eyes PERRL, EOMs intact bilaterally and conjunctivae normal Neck nuchal rigidity, supple, no JVD and thyroid normal General: trachea midline Resp normal respiratory effort, no retractions, no use of accessory muscles and clear to auscultation bilaterally Auscultation: Negative for rales, rhonchi or wheezes Cardio regular rate, regular rhythm, S1 normal heart sound, S2 normal heart sound, no murmurs, no rub and no gallops GI normal to inspection, nondistended, normoactive bowel sounds, soft to palpation, non-tender and non-distended Extremity no clubbing, cyanosis or edema Skin no rashes or lesions noted General Skin Exam: no breakdown Neuro oriented x3, CN's II-XII intact bilaterally, no focal motor deficits and no sensory deficits noted Sensorium / Orientation: awake and alert Speech: speech normal Psych thought process normal and affect normal Assessment & Plan Assessment/Plan (1) Severe sepsis: PLAN: 1. Severe sepsis-secondary to staph bacteremia and cystitis-patient will continue on Levaquin and vancomycin for now, labs will be monitored, sensitivities are not back yet for the blood culture. #2 dehydration-patient's lab will be monitored, continue IV fluid administration Charges/Coding Visit Charges Inpatient E&M: 20934 Subs Hosp L2
[2021-03-13] VITALS (11 sets, daily range): BP systolic 137–158; BP diastolic 86–99; PULSE 75–180; RESP 12–18; TEMP 37.4–38.6; O2SAT 93–97
[2021-03-13] MEDS: Acetaminophen 325 MG Tablet 650 MG PO ×4 (02:26→21:21)
[2021-03-13] MEDS: 0.9% Normal Saline 1,000 ML 125 ML IV (02:35)
[2021-03-13] MEDS: Vancomycin IV 1,000 MG/200 ML BAG 200 MG IV (06:27)
[2021-03-13] MEDS: levoFLOXacin IV 750 MG/150 ML BAG 100 MG IV (09:25)
--- NOTE | 2021-03-13 10:14 | ECHOCS_ITS ---
Reason For Study: MURMUR Procedure This was a 2D Doppler, Color Flow transthoracic echocardiogram. Exam performed portable in patient room. Left Ventricle Normal LV size. The estimated ejection fraction is 55 %. Normal diastology for age. No regional wall motion abnormalities noted. Right Ventricle Normal RV size. Normal systolic function. Atria The left atrium is mildly enlarged. Normal right atrium. No doppler evidence for ASD. Mitral Valve There is mild mitral annular calcification. There is no vegetation seen on the mitral valve. There is no mitral valve stenosis. Mild (1+) mitral valve insufficiency. Tricuspid Valve No vegetations identified. There is no tricuspid stenosis. Mild tricuspid valve insufficiency. Pulmonary artery systolic pressure is 60 mmHg. Aortic Valve Trisinus/trileaflet aortic valve. There is no aortic valvular vegetation. There is no aortic stenosis. Mild (1+) aortic valve insufficiency. Pulmonic Valve No vegetations. There is no pulmonic valvular stenosis. Trivial pulmonic valve insufficiency. Great Vessels Mildly dilated aortic root. Pericardium/Pleural No pericardial effusion. MMode/2D Measurements & Calculations LVIDd: 4.5 cm IVSd: 1.2 cm Ao root diam: 4.3 cm LVIDs: 3.5 cm LVPWd: 1.2 cm RVDd: 4.6 cm FS: 21.1 % LAV(MOD-bp): 72.4 ml LVAd ap4: 41.8 cm2 LVAd ap2: 41.8 cm2 LAV(MOD-bp) Indexed: 32.8 ml/m2 LVLd ap4: 9.4 cm LVLd ap2: 10.2 cm LAV(MOD-sp2): 70.6 ml EDV(MOD-sp4): 150.5 ml EDV(MOD-sp2): 145.6 ml LAV(MOD-sp4): 69.3 ml EDV(sp4-el): 156.6 ml EDV(sp2-el): 145.1 ml LVAs ap4: 28.3 cm2 LVAs ap2: 27.2 cm2 LVLs ap4: 8.5 cm LVLs ap2: 8.3 cm ESV(MOD-sp4): 79.3 ml ESV(MOD-sp2): 77.1 ml ESV(sp4-el): 80.3 ml ESV(sp2-el): 75.9 ml EF(MOD-sp4): 47.3 % EF(MOD-sp2): 47.1 % EF(sp4-el): 48.7 % SV(MOD-sp4): 71.2 ml SV(MOD-sp2): 68.5 ml SV(sp4-el): 76.3 ml LA dimension(2D): 4.5 cm LA A4 area: 22.1 cm2 RA A4 area: 18.6 cm2 Doppler Measurements & Calculations MV E max yuniel: 100.5 cm/sec Lat Peak E' Yuniel: 13.3 cm/sec Med Peak E' Yuniel: 7.4 cm/sec MV A max yuniel: 69.1 cm/sec E/E' lat: 7.5 E/E' med: 13.5 MV E/A: 1.5 Ao V2 max: 157.4 cm/sec AI max yuniel: 448.3 cm/sec LV V1 max: 145.1 cm/sec Ao max P.9 mmHg AI max P.4 mmHg LV V1 max P.5 mmHg AI dec slope: 282.5 cm/sec2 AI P1/2t: 464.8 msec PA V2 max: 121.7 cm/sec PI end-d yuniel: 101.7 cm/sec TR max yuniel: 363.4 cm/sec TR max P.8 mmHg ECHO/Echo Complete W/ Contrast Interpretation Summary The estimated ejection fraction is 55 %. The left atrium is mildly enlarged. Mild (1+) mitral valve insufficiency. Pulmonary artery systolic pressure is 60 mmHg. Mild (1+) aortic valve insufficiency. Mildly dilated aortic root. Ordering Physician: Randal Hui Performed By: Jina Valerio, JOEY, RVT
--- NOTE | 2021-03-13 10:19 | CON.PCM.ID_ITS ---
Assessment & Plan Assessment/Plan (1) MSSA bacteremia: PLAN: severe sepsis and LUC due to mssa bacteremia - unclear source. Ucx also (+) for mssa, mild pyuria on UA. L thumb with 2 splinter hemorrhages. None on feet. Will check repeat bcx today and tomorrow and TTE. Has tolerated keflex and duricef in the past (2012 in our system), will narrow abx to cefazolin for best coverage of mssa. Has had covid vaccine x3. Will follow, thank you (2) Severe sepsis: (3) LUC (acute kidney injury): HPI Consult Data Date of Consult: 03/13/21 HPI Narrative HPI Narrative: HEATH MAK, is a 65 M who presented 03/11 with one day of fever, chills, shakes, dysuria, difficulty urinating. No sick contacts. Covid vaccine x3. No foreign material in body except for dental plate. No recent procedures, skin infections, boils, cuts, abx. No new joint pain or back pain. Came to ED, found to have LUC, severe sepsis, admitted on vanc/levaquin. Ucx and bcx with staph aureus. Feeling better, fever improved, dysuria improving. H/o reaction with PCN but has taken keflex and duricef without issue. Full ROS performed and neg except as noted above. [facility] Medical History BPH (benign prostatic hyperplasia) Home Medications NK 05/26/20 [History Last Taken Unknown] Allergy/AdvReac Type Severity Reaction Status Date / Time Penicillins Allergy Anaphylaxis Verified 03/13/21 10:19 Social History (Updated 03/11/21 @ 17:[address] Renetta Posey, ) Smoking Status: Never smoker alcohol intake: current details: 2-3 beers nightly substance use type: does not use Physical Exam Const alert and oriented x3 Constitutional Narrative: ill appearing General Appearance: cooperative Exam Limitations: no limitations HEENT normocephalic and head/scalp atraumatic Eyes PERRL and EOMs intact bilaterally Neck supple and No nodes Resp normal air movement and clear to auscultation bilaterally Cardio regular rate and regular rhythm Heart Sounds: murmur GI normal to inspection, nondistended, normoactive bowel sounds Extremity no clubbing, cyanosis or edema Extremity Narrative: No spine or joint pain. Skin Skin Narrative: L thumb with 2 splinter hemorrhages Lab / Micro Data Result Diagrams: 03/12/21 05:58 03/12/21 05:58 Labs: Laboratory Results - last 24 hr 03/12/21 05:58: Diff Path Review Reviewed 03/12/21 05:58: Total PSA 3.33 Micro: Microbiology 03/11/21 16:17 Blood Culture (Wb) - Anticubital Left Bacteria Detection (PCR) - Final Staphylococcus aureus 03/11/21 16:17 Blood Culture (Wb) - Anticubital Left Blood Culture - Pre liminary Staphylococcus aureus 03/11/21 16:29 Blood Culture (Wb) - Anticubital Right Blood Culture - Preliminary Staphylococcus aureus 03/11/21 16:17 Urine, Clean Catch Urine Culture - Final Staphylococcus aureus
[2021-03-13 10:38] LABS: Absolute Lymphocyte Count 0.28 X10^3/uL (0.83-4.51); Absolute Neutrophil Count 7.7 X10^3/uL (2.0-7.7); Basophil# 0.01 X10^3/uL; Basophil% 0.1 % (0-1); Hematocrit 33.6 % (40-54); Hemoglobin 11.4 g/dL (13.0-16.5); Lymphocyte # 0.28 X10^3/ul (0.83-4.51); Lymphocyte % 3.3 % (19-41); Mean Corp Hgb Conc 33.9 g/dL (32-36); Mean Corpuscular Hgb 31.5 pg (27.0-32.0); Mean Corpuscular Volume 92.8 fL (80-94); Mean Platelet Vol. 11.4 fl (6.2-12.0); Monocyte# 0.43 X10^3/uL; NRBC Flagged by Analyzer 0 % (0-5); Neutrophil % 89.7 % (47-70); POSITIVE COUNT YES; POSITIVE DIFFERENTIAL YES; Platelet Count 87 K/mm3 (150-450); RBC Distribution Width CV 13.1 % (11.6-14.6); RBC Distribution Width SD 44.8 fl (35.1-43.9); Red Blood Count 3.62 M/mm3 (4.6-6.2); White Blood Count 8.6 K/mm3 (4.4-11.0)
[2021-03-13 10:59] LABS: Differential Indicated SCAN CRITERIA MET
[2021-03-13 11:01] LABS: Differential Comment SCANNED
[2021-03-13 18:43] LABS: Vancomycin, Trough Level 8.3 ug/mL (5.0-15.0)
--- NOTE | 2021-03-13 19:11 | PCM.PN.HOSP ---
Subjective Subjective Patient was seen and examined today, he spiked a temperature today, his white count however was normal. Patient was seen in consultation by infectious diseases who recommended a TTE and repeat blood cultures. Spoke with the patient's friend who was in the room at time my examination, she appears to understand what I went over concerning the patient's care. Objective Data Objective Data Vital Signs: Vital Signs Temp Pulse Resp BP Pulse Ox 100.3 F H 82 16 148/88 H 95 03/13/21 15:58 03/13/21 15:58 03/13/21 15:58 03/13/21 15:58 03/13/21 15:58 Oxygen Delivery Method Room Air Weight: 97 kg Body Mass Index (BMI) 28.2 Intake & Output: Intake and Output for Last 24 Hours 03/11/21 03/12/21 03/13/21 23:59 23:59 23:59 Intake Total 2547.5 / 2547.5 3680.00 / 3680.00 4105.83 / 4105.83 Output Total 300 / 300 Balance 2547.5 / 2547.5 3380.00 / 3380.00 4105.83 / 4105.83 Lab / Micro Data Result Diagrams: 03/13/21 10:12 03/12/21 05:58 Labs: Laboratory Results - last 24 hr 03/13/21 10:12: WBC 8.6, RBC 3.62 L, Hgb 11.4 L, Hct 33.6 L, MCV 92.8, MCH 31.5, MCHC 33.9, RDW Std Deviation 44.8 H, RDW Coeff of Jj 13.1, Plt Count 87 L, MPV 11.4, Immature Gran % (Auto) 1.900 H, Neut % (Auto) 89.7 H, Lymph % (Auto) 3.3 L, [place] % (Auto) 5.0, Eos % (Auto) 0.0, Baso % (Auto) 0.1, Absolute Neuts (auto) 7.7, Absolute Lymphs (auto) 0.28 L, Nucleated RBC % 0, Differential Comment SCANNED 03/13/21 17:19: Vancomycin Trough 8.3 Micro: Microbiology 03/11/21 16:17 Blood Culture (Wb) - Anticubital Left Bacteria Detection (PCR) - Final Staphylococcus aureus 03/11/21 16:17 Blood Culture (Wb) - Anticubital Left Blood Culture - Preliminary Staphylococcus aureus 03/11/21 16:29 Blood Culture (Wb) - Anticubital Right Blood Culture - Preliminary Staphylococcus aureus 03/11/21 16:17 Urine, Clean Catch Urine Culture - Final Staphylococcus aureus 03/11/21 15:37 Mucosa - Nose Influenza Types A,B Direct FA (BERRY) - Final 03/11/21 14:40 Nasal Secretion SARS-CoV-2 Antigen (Rapid) - Final Physical Exam Const alert and oriented x3 Constitutional Narrative: Patient appears fatigued General Appearance: cooperative, well kempt and well developed Orientation / Consciousness: awake, oriented to person, oriented to place and oriented to time HEENT normocephalic and moist oral mucous membranes Eyes PERRL, EOMs intact bilaterally and conjunctivae normal Neck nuchal rigidity, supple, no JVD, thyroid normal and no carotid bruits General: trachea midline Resp normal respiratory effort and clear to auscultation bilaterally Auscultation: Negative for rales, rhonchi or wheezes Cardio regular rate, regular rhythm, no murmurs, no rub and no gallops GI normal to inspection, nondistended, normoactive bowel sounds, soft to palpation, non-tender and non-distended Extremity no clubbing, cyanosis or edema Skin no rashes or lesions noted General Skin Exam: no breakdown Neuro oriented x3, CN's II-XII intact bilaterally, no focal motor deficits and no sensory deficits noted Sensorium / Orientation: awake and alert Speech: speech normal Psych thought process normal and affect normal Assessment & Plan Assessment/Plan (1) MSSA bacteremia: (2) Severe sepsis: PLAN: 1. Severe sepsis-secondary to staph bacteremia and cystitis-patient's antibiotic coverage was changed to Ancef, infectious diseases has recommended a TTE which I will order. #2 dehydration-patient is able to take fluids adequately, his IV fluids were discontinued. Charges/Coding Visit Charges Inpatient E&M: 78536 Subs Hosp L2
[2021-03-13] MEDS: Tamsulosin HCl 0.4 MG Capsule PO (21:20)
[2021-03-13] MEDS: 0.9% Saline Lock 10 ML Syringe IV (21:21)
[2021-03-14] VITALS (11 sets, daily range): BP systolic 135–151; BP diastolic 84–99; PULSE 65–81; RESP 12–18; TEMP 36.9–37.3; O2SAT 94–98
[2021-03-14] MEDS: Acetaminophen 325 MG Tablet 650 MG PO ×3 (05:40→19:58)
[2021-03-14] MEDS: 0.9% Saline Lock 10 ML Syringe IV (05:41)
[2021-03-14 06:01] LABS: Absolute Lymphocyte Count 0.47 X10^3/uL (0.83-4.51); Absolute Neutrophil Count 6.5 X10^3/uL (2.0-7.7); Basophil# 0.01 X10^3/uL; Basophil% 0.1 % (0-1); Hematocrit 34.3 % (40-54); Hemoglobin 11.6 g/dL (13.0-16.5); Lymphocyte # 0.47 X10^3/ul (0.83-4.51); Lymphocyte % 6.1 % (19-41); Mean Corp Hgb Conc 33.8 g/dL (32-36); Mean Corpuscular Hgb 31.1 pg (27.0-32.0); Mean Platelet Vol. 11.5 fl (6.2-12.0); Monocyte# 0.71 X10^3/uL; Monocyte% 9.2 % (0-10); NRBC Flagged by Analyzer 0 % (0-5); Neutrophil # 6.51 X10^3/uL (2.7-7.7); Neutrophil % 84.3 % (47-70); POSITIVE DIFFERENTIAL YES; Platelet Count 103 K/mm3 (150-450); RBC Distribution Width SD 43.7 fl (35.1-43.9); Red Blood Count 3.73 M/mm3 (4.6-6.2); White Blood Count 7.7 K/mm3 (4.4-11.0)
[2021-03-14 06:06] LABS: Differential Indicated SCAN CRITERIA MET
[2021-03-14 06:24] LABS: Anion Gap 6 (5-15); BUN 16 mg/dL (7-18); BUN/Creat Ratio 15.2 RATIO (10-20); Calcium,Total 8.2 mg/dL (8.5-10.1); Chloride 105 mmol/L (98-107); Creatinine, Serum 1.05 mg/dL (0.70-1.30); EST Glomerular Filtration Rate 75 mL/min (>60); Est Glom Filt Rate - Afr Amer 91 mL/min (>60); Estimated Creatinine Clearance 78.21 ml/min; Glucose 111 mg/dL (74-106); Potassium 3.4 mmol/L (3.5-5.1); Sodium Level 136 mmol/L (136-145)
[2021-03-14] MEDS: Potassium Chloride Oral Tablet 20 MEQ PO (09:50)
--- NOTE | 2021-03-14 12:58 | PCM.PN.ID ---
Physical Exam Narrative Feeling better today, no fever, no n/v/d. Const alert and no apparent distress General Appearance: cooperative Resp normal air movement and clear to auscultation bilaterally Cardio regular rate and regular rhythm Heart Sounds: murmur GI soft to palpation, non-tender, non-distended and hepatosplenomegaly Extremity no clubbing, cyanosis or edema Skin no rashes or lesions noted ID ID: Route of nutrition/ use of supplements: [] Nutritional Intake: [] IV Site: [] Duenas Catheter: [] Assessment & Plan Assessment/Plan (1) MSSA bacteremia: PLAN: severe sepsis and LCU due to mssa bacteremia - unclear source. Ucx also (+) for mssa, mild pyuria on UA. L thumb with 2 splinter hemorrhages. None on feet. Will check repeat bcx today and has pending TTE. Has tolerated keflex and duricef in the past (2012 in our system), now on cefazolin for best coverage of mssa. Has had covid vaccine x3. If TTE neg, I think he will need MAGDA. Will follow (2) Severe sepsis: (3) LUC (acute kidney injury):
[2021-03-14] MEDS: Cefazolin 2 GM in 0.9% Normal Saline 100 ML IV ×2 (13:50→20:46)
[2021-03-14] MEDS: Tamsulosin HCl 0.4 MG Capsule PO (16:27)
--- NOTE | 2021-03-14 17:35 | PCM.PN.HOSP ---
Subjective Subjective Patient was seen and examined today, I talked briefly with infectious diseases who recommended the patient have a MAGDA, this will have to be set up for Wednesday. Patient's echocardiogram did not show any obvious vegetations, he does have moderate pulmonary hypertension-EF was normal. Objective Data Objective Data Vital Signs: Vital Signs Temp Pulse Resp BP Pulse Ox 98.8 F 67 12 147/99 H 96 03/14/21 16:28 03/14/21 16:28 03/14/21 16:28 03/14/21 16:28 03/14/21 16:28 Oxygen Delivery Method Room Air Weight: 97 kg Body Mass Index (BMI) 28.2 Intake & Output: Intake and Output for Last 24 Hours 03/12/21 03/13/21 03/14/21 23:59 23:59 23:59 Intake Total 3680.00 / 3680.00 4275.83 / 4275.83 1320 / 1320 Output Total 300 / 300 400 / 400 Balance 3380.00 / 3380.00 4275.83 / 4275.83 920 / 920 Lab / Micro Data Result Diagrams: 03/14/21 05:11 03/14/21 05:11 Labs: Laboratory Results - last 24 hr 03/13/21 17:19: Vancomycin Trough 8.3 03/14/21 05:11: WBC 7.7, RBC 3.73 L, Hgb 11.6 L, Hct 34.3 L, MCV 92.0, MCH 31.1, MCHC 33.8, RDW Std Deviation 43.7, RDW Coeff of Jj 13.0, Plt Count 103 L, MPV 11.5, Immature Gran % (Auto) 0.300, Neut % (Auto) 84.3 H, Lymph % (Auto) 6.1 L, [place] % (Auto) 9.2, Eos % (Auto) 0.0, Baso % (Auto) 0.1, Absolute Neuts (auto) 6.5, Absolute Lymphs (auto) 0.47 L, Nucleated RBC % 0 03/14/21 05:11: Sodium 136, Potassium 3.4 L, Chloride 105, Carbon Dioxide 25.0, Anion Gap 6, BUN 16, Creatinine 1.05, Estim Creat Clear Calc 78.21, Est GFR (MDRD) Af Amer 91, Est GFR (MDRD) Non-Af 75, BUN/Creatinine Ratio 15.2, Glucose 111 H, Calcium 8.2 L Micro: Microbiology 03/11/21 16:17 Blood Culture (Wb) - Anticubital Left Bacteria Detection (PCR) - Final Staphylococcus aureus 03/11/21 16:17 Blood Culture (Wb) - Anticubital Left Blood Culture - Final Staphylococcus aureus 03/11/21 16:29 Blood Culture (Wb) - Anticubital Right Blood Culture - Preliminary Staphylococcus aureus 03/11/21 16:17 Urine, Clean Catch Urine Culture - Final Staphylococcus aureus 03/11/21 15:37 Mucosa - Nose Influenza Types A,B Direct FA (BERRY) - Final 03/11/21 14:40 Nasal Secretion SARS-CoV-2 Antigen (Rapid) - Final Radiography Diagnostic Testing: Radiology Impression Echocardiogram 03/13/21 10:14 Interpretation Summary The estimated ejection fraction is 55 %. The left atrium is mildly enlarged. Mild (1+) mitral valve insufficiency. Pulmonary artery systolic pressure is 60 mmHg. Mild (1+) aortic valve insufficiency. Mildly dilated aortic root. Ordering Physician: Randal Hui Performed By: Jina Valerio, JOEY, RVT Physical Exam Narrative On examination he appeared in good health and spirits. Vital signs as documented. Skin warm and dry and without overt rashes. Neck without JVD, neck was supple, trachea midline, thyroid was normal. Lungs clear bilaterally, normal air movement was noted. Heart exam notable for regular rhythm, normal sounds and absence of murmurs, rubs or gallops. Abdomen unremarkable and without evidence of organomegaly, masses, or abdominal aortic enlargement. Bowel sounds are present, abdomen is not distended. Extremities nonedematous, no cyanosis was noted, no clubbing was noted. Neuro: Cranial nerves II through XII are grossly intact, no focal motor deficits were noted, sensation to light touch and pinprick intact, motor exam 5/5 throughout. Psych: Patient is alert and oriented x3, he does not appear anxious or depressed, he does not appear agitated. Assessment & Plan Assessment/Plan (1) MSSA bacteremia: (2) Severe sepsis: PLAN: 1. Severe sepsis-secondary to staph bacteremia and cystitis-patient's antibiotic coverage was changed to Ancef, infectious diseases has recommended a MAGDA which I will order. Patient's white blood cell count today was normal. #2 dehydration-patient is able to take fluids adequately, his IV fluids were discontinued. #3 BPH-patient is on Flomax, patient's PSA was normal. Charges/Coding Visit Charges Inpatient E&M: 18335 Subs Hosp L2
[2021-03-15] VITALS (12 sets, daily range): BP systolic 138–161; BP diastolic 82–98; PULSE 61–75; RESP 16–18; TEMP 36.6–37.4; O2SAT 95–98
[2021-03-15] MEDS: Acetaminophen 325 MG Tablet 650 MG PO ×4 (03:06→21:45)
[2021-03-15] MEDS: Cefazolin 2 GM in 0.9% Normal Saline 100 ML IV ×3 (05:08→21:45)
[2021-03-15] MEDS: Potassium Chloride Oral Tablet 20 MEQ PO (12:53)
[2021-03-15] MEDS: Magnesium Citrate 300 ML PO (12:53)
[2021-03-15] MEDS: 0.9% Saline Lock 10 ML Syringe IV (13:00)
--- NOTE | 2021-03-15 16:45 | PN.HOSP_ITS ---
Subjective Subjective Patient was seen and examined today, his ex-girlfriend was in the room during the time of my visit, his blood culture from 2 days ago has not resulted yet, his high temp today was 99.4. Patient appears in no distress, he does complain of having some ulcerations in his mouth-I looked in his oral cavity he is got so me areas that appear to be aphthous ulcers and overall dry mouth. I will write for some Magic mouthwash for the patient. Patient also complained of constipation, I ordered mag citrate but he was unable to drink it due to his mouth ulcers, he states he would prefer just to drink prune juice. Objective Data Objective Data Vital Signs: Vital Signs Temp Pulse Resp BP Pulse Ox 99.4 F H 71 16 145/93 H 98 03/15/21 15:14 03/15/21 15:14 03/15/21 15:14 03/15/21 15:14 03/15/21 15:14 Oxygen Delivery Method Room Air Weight: 97 kg Body Mass Index (BMI) 28.2 Intake & Output: Intake and Output for Last 24 Hours 03/13/21 03/14/21 03/15/21 23:59 23:59 23:59 Intake Total 4275.83 / 4275.83 2390 / 2390 820 / 820 Output Total 750 / 750 425 / 425 Balance 4275.83 / 4275.83 1640 / 1640 395 / 395 Lab / Micro Data Result Diagrams: 03/14/21 05:11 03/14/21 05:11 Micro: Microbiology 03/11/21 16:17 Blood Culture (Wb) - Anticubital Left Bacteria Detection (PCR) - Final Staphylococcus aureus 03/11/21 16:17 Blood Culture (Wb) - Anticubital Left Blood Culture - Final Staphylococcus aureus 03/11/21 16:29 Blood Culture (Wb) - Anticubital Right Blood Culture - Preliminary Staphylococcus aureus 03/11/21 16:17 Urine, Clean Catch Urine Culture - Final Staphylococcus aureus 03/11/21 15:37 Mucosa - Nose Influenza Types A,B Direct FA (BERRY) - Final 03/11/21 14:40 Nasal Secretion SARS-CoV-2 Antigen (Rapid) - Final Physical Exam Const alert, oriented x3, no apparent distress and healthy appearing General Appearance: cooperative, well kempt and well developed Orientation / Consciousness: awake, oriented to person, oriented to place and oriented to time HEENT normocephalic and head/scalp atraumatic HEENT Narrative: Overall oral mucosa is dry appearing, there are some superficial ulcerations noted over the hard palate noted. Head and Scalp: normocephalic Eyes PERRL, EOMs intact bilaterally and conjunctivae normal Neck nuchal rigidity, supple, no JVD and thyroid normal General: trachea midline Resp normal respiratory effort, no retractions, no use of accessory muscles and clear to auscultation bilaterally Auscultation: Negative for rales, rhonchi or wheezes Cardio regular rate, regular rhythm, S1 normal heart sound, S2 normal heart sound, no murmurs, no rub and no gallops GI normal to inspection, nondistended, normoactive bowel sounds, soft to palpation, non-tender and non-distended Extremity no clubbing, cyanosis or edema Skin no rashes or lesions noted General Skin Exam: no breakdown Neuro oriented x3, CN's II-XII intact bilaterally, no focal motor deficits and no sens ory deficits noted Sensorium / Orientation: awake and alert Speech: speech normal Psych thought process normal and affect normal Assessment & Plan Assessment/Plan (1) MSSA bacteremia: (2) Severe sepsis: PLAN: 1. Severe sepsis-secondary to staph bacteremia and cystitis- patient's antibiotic coverage was changed to Ancef, infectious diseases has recommended a MAGDA which I will order. Patient's white blood cell count today was normal. #2 dehydration-patient is able to take fluids adequately, his IV fluids were discontinued. #3 BPH-patient is on Flomax, patient's PSA was normal. #4 superficial mouth ulcerations-etiology unclear, I will place the patient on Magic mouthwash. I do not think he has thrush. Charges/Coding Visit Charges Inpatient E&M: 39195 Subs Hosp L2
[2021-03-15] MEDS: Tamsulosin HCl 0.4 MG Capsule PO (17:48)
[2021-03-15] MEDS: BMX LIQUID 180 ML PO (18:51)
[2021-03-16] VITALS (10 sets, daily range): BP systolic 147–151; BP diastolic 82–92; PULSE 61–71; RESP 12–16; TEMP 36.9–37.3; O2SAT 94–97
[2021-03-16 01:21] LABS: Magnesium 2.2 mg/dL (1.6-2.6)
[2021-03-16] MEDS: Acetaminophen 325 MG Tablet 650 MG PO ×4 (04:21→23:15)
[2021-03-16] MEDS: Cefazolin 2 GM in 0.9% Normal Saline 100 ML IV ×3 (05:59→21:55)
[2021-03-16] MEDS: 0.9% Saline Lock 10 ML Syringe IV ×2 (06:01→21:55)
--- NOTE | 2021-03-16 11:52 | PN.HOSP_ITS ---
Subjective Subjective Patient was seen and examined today, he is afebrile, he states he feels better, his blood cultures were negative. Patient will need a MAGDA performed tomorrow, if this is negative, most likely he will be able to be discharged home on oral antibiotics. Objective Data Objective Data Vital Signs: Vital Signs Temp Pulse Resp BP Pulse Ox 99.0 F 61 15 150/87 H 94 03/16/21 08:05 03/16/21 08:05 03/16/21 08:05 03/16/21 08:05 03/16/21 08:05 Oxygen Delivery Method Room Air Weight: 97 kg Body Mass Index (BMI) 28.2 Intake & Output: Intake and Output for Last 24 Hours 03/14/21 03/15/21 03/16/21 23:59 23:59 23:59 Intake Total 2390 / 2390 1780 / 1780 830 / 830 Output Total 750 / 750 425 / 425 400 / 400 Balance 1640 / 1640 1355 / 1355 430 / 430 Lab / Micro Data Result Diagrams: 03/14/21 05:11 03/14/21 05:11 Labs: Laboratory Results - last 24 hr 03/16/21 00:43: Magnesium 2.2 Micro: Microbiology 03/13/21 17:19 Blood Culture (Wb) - Right Hand Blood Culture - Preliminary No growth in 48 hours. 03/14/21 08:50 Blood Culture (Wb) - Anticubital Right Blood Culture - Preliminary No growth in 48 hours. 03/11/21 16:17 Blood Culture (Wb) - Anticubital Left Bacteria Detection (PCR) - Final Staphylococcus aureus 03/11/21 16:17 Blood Culture (Wb) - Anticubital Left Blood Culture - Final Staphylococcus aureus 03/11/21 16:29 Blood Culture (Wb) - Anticubital Right Blood Culture - Preliminary Staphylococcus aureus 03/11/21 16:17 Urine, Clean Catch Urine Culture - Final Staphylococcus aureus 03/11/21 15:37 Mucosa - Nose Influenza Types A,B Direct FA (BERRY) - Final 03/11/21 14:40 Nasal Secretion SARS-CoV-2 Antigen (Rapid) - Final Physical Exam Const alert, oriented x3, no apparent distress and healthy appearing General Appearance: cooperative, well kempt and well developed Orientation / Consciousness: awake, oriented to person, oriented to place and oriented to time HEENT normocephalic, head/scalp atraumatic and moist oral mucous membranes Head and Scalp: normocephalic Eyes PERRL, EOMs intact bilaterally and conjunctivae normal Neck nuchal rigidity, supple, no JVD and thyroid normal General: trachea midline Resp normal respiratory effort and clear to auscultation bilaterally Auscultation: Negative for rales, rhonchi or wheezes Cardio regular rate, regular rhythm, S1 normal heart sound, S2 normal heart sound, no murmurs, no rub and no gallops GI normal to inspection, nondistended, normoactive bowel sounds, soft to palpation, non-tender and non-distended Extremity no clubbing, cyanosis or edema Skin no rashes or lesions noted General Skin Exam: no breakdown Neuro oriented x3, CN's II-XII intact bilaterally, no focal motor deficits and no sensory deficits noted Sensorium / Orientation: awake and alert Speech: speech normal Psych thought process normal and affect normal Assessment & Plan Assessment/Plan (1) MSSA bacteremia: (2) Severe sepsis: PLAN: 1. Severe sepsis-secondary to staph bacteremia and cystitis- patient's antibiotic coverage was changed to Ancef, infectious diseases has recommended a MAGDA which I will order. #2 dehydration-patient is able to take fluids adequately, his IV fluids were discontinued. #3 BPH-patient is on Flomax, patient's PSA was normal. #4 superficial mouth ulcerations-etiology unclear, the patient is on Magic mouthwash. I do not think he has thrush. Charges/Coding Visit Charges Inpatient E&M: 47270 Subs Hosp L2
--- NOTE | 2021-03-16 11:54 | ECHOTEE_ITS ---
Reason For Study: Positive blood culture for MSSA Medication MAGDA probe 6VT-D (SN [id number]) passed without difficulty. No complications were noted. Versed 2 mg given slow IVP. Fentanyl 50 mcg given slow IVP. Cetacaine Topical [place] given X3 orally. Performed a rapid injection of agitated mix of 9 cc saline and 1cc air to assess for atrial septal defect. Left Ventricle Normal LV size. Left ventricular systolic function is normal. The estimated ejection fraction is 60 %. No regional wall motion abnormalities noted. Right Ventricle Normal RV size. Normal systolic function. Atria Normal atrial septum. Normal left atrium. No thrombus is detected in the left atrial appendage. Normal right atrium. Mitral Valve Normal mitral valve. Mild (1+) eccentric mitral valve insufficiency. Tricuspid Valve Normal tricuspid valve. Aortic Valve Trisinus/trileaflet aortic valve. Mild focal aortic valve thickening. Mild (1+) aortic valve insufficiency. Pulmonic Valve Normal pulmonic valve. Vessels Normal aortic root. Mild atherosclerosis of the aortic arch. The pulmonary artery is normal size. Pericardium No pericardial effusion. ECHO/Echo Transesophageal (MAGDA) Interpretation Summary Normal LV size. Left ventricular systolic function is normal. The estimated ejection fraction is 60 %. No thrombus is detected in the left atrial appendage. Mild (1+) aortic valve insufficiency. Mild focal aortic valve thickening. No vegetation or thrombus seen. Ordering Physician: German Chandra Performed By: Yudy Isbell, JOEY, RVT
[2021-03-16] MEDS: BMX LIQUID 180 ML PO ×2 (12:42→19:40)
[2021-03-16] MEDS: Tamsulosin HCl 0.4 MG Capsule PO (16:11)
[2021-03-17] VITALS (8 sets, daily range): BP systolic 152–168; BP diastolic 94–95; PULSE 62–69; RESP 15–16; TEMP 36.6–37.1; O2SAT 93–95; BMI 28.1
[2021-03-17] MEDS: Cefazolin 2 GM in 0.9% Normal Saline 100 ML IV (06:22)
[2021-03-17] MEDS: Ibuprofen 400 MG Tablet PO (08:25)
--- NOTE | 2021-03-17 08:54 | NURSING ---
Pt transported to [facility] via RN. Pt left w/ Yolanda Zayas RN in [facility]. Reported AM motrin w/ sips of water.
[2021-03-17] MEDS: BMX LIQUID 180 ML PO (12:47)
--- NOTE | 2021-03-17 13:03 | PCM.DC ---
Discharge Instructions Diet Discharge Diet: No restrictions Activity Discharge Activity: Return to Normal Activity Follow Up Care Test Results: Test results from this visit will be discussed in further detail at your follow-up appointment, if applicable. Discharge Plan Admission Admit Date/Time: 03/11/21 17:21 Primary Reason for Your Visit: severe sepsis secondary to Acute UTI Attending Provider: Naheed Wray Primary Care Provider: Care Physician,No Primary Consulting Providers: Randal Hui Instructions Additional Instructions / Restrictions: Complete your orders as prescribed. Continue to keep yourself hydrated. You need to follow-up with your primary care doctor within 1 to 2 weeks and would need repeat blood work to follow-up on your kidney function. Discharge Orders/Prescriptions Prescriptions: New linezolid 600 mg tablet 600 mg PO Q12H 10 Days Qty: 20 RF: 0 tamsulosin 0.4 mg Capsule 0.4 mg PO DAILY@1730 30 Days Qty: 30 RF: 0 Referrals / Follow Up: Care Physician,No Primary [Primary Care Provider] - Within 2 Weeks Disposition Disposition (needs filled in before D/C Order can be placed): Home, Self Care
--- NOTE | 2021-03-17 13:13 | DS.PCM_ITS ---
Providers Date of Admission: 03/11/21 Date of Discharge: 03/17/21 Primary Care Physician: Radha Primary Care Phys Consultations 03/13/21 10:05 Consult: Infectious Disease Routine Consulting Provider: Randal Hui Reason for Consult: + Staph blood culture EMERGENT Consult: No MD Notified: Yes Date Notified: 03/13/21 Time Notified: 10:06 Method of Notification: Verbal Reason For Visit: SEPSIS 2/2 UTI Diagnosis Discharge Diagnosis (1) MSSA bacteremia: Status: Acute Code(s): R78.81 - Bacteremia; B95.61 - Methicillin susceptible Staphylococcus aureus infection as the cause of diseases classified elsewhere (2) Severe sepsis: Status: Acute Code(s): A41.9 - Sepsis, unspecified organism; R65.20 - Severe sepsis without septic shock Medications at Discharge Home Medications linezolid 600 mg PO Q12H 10 Days #20 tab 03/17/21 tamsulosin 0.4 mg PO DAILY@1730 30 Days #30 cap 03/17/21 Hospital Course Operations None Procedures None Summary of Care Provided Minutes Spent on Discharge: 35 Hospital Course: This is 59-year-old male with past medical history of BPH who was admitted with fever, nausea and vomiting and dysuria ongoing for 2 days. Patient had a fever of 102.2F in the ED. he was slightly tachycardic. His white cell count was 24.6 with a left shift, his urinalysis was concerning acute UTI. Patient also had lactic acidosis which was secondary to the above. He received IV fluids and IV antibiotics. Blood cultures came back positive for MSSA. Urine cultures also grew MSSA. Patient underwent 2D echo that was unremarkable. Infectious disease were consulted. His antibiotics were switched to IV cefazolin. He underwent MAGDA on 03/1721 that was also unremarkable. Patient continued to improve and remained stable throughout his hospital stay. He was discharged to complete 10 days of linezolid. He will follow-up with his primary care doctor within 1 to 2 weeks. Physical Exam Narrative Physical exam: General: Alert, Oriented x3, Cooperative, No apparent distress, Well developed HEENT: Atraumatic Oral: Moist Mucosa Neck: Supple Lungs: Clear to auscultation Cardiovascular: HS I+II, regular, no murmurs Abdomen: Bowel Sounds Present, Soft, Non Tender Extremities: No edema Weight / BMI Weight Weight: 96.7 kg Body Mass Index (BMI) 28.1 ABG / Lab / Microbiology Data Result Diagrams: 03/14/21 05:11 03/14/21 05:11 Microbiology: Microbiology 03/13/21 17:19 Blood Culture (Wb) - Right Hand Blood Culture - Preliminary No growth in 48 hours. 03/14/21 08:50 Blood Culture (Wb) - Anticubital Right Blood Culture - Preliminary No growth in 48 hours. 03/11/21 16:17 Blood Culture (Wb) - Anticubital Left Bacteria Detection (PCR) - Final Staphylococcus aureus 03/11/21 16:17 Blood Culture (Wb) - Anticubital Left Blood Culture - Final Staphylococcus aureus 03/11/21 16:29 Blood Culture (Wb) - Anticubital Right Blood Culture - Preliminary Staphylococcus aureus 03/11/21 16:17 Urine, Clean Catch Urine Culture - Final Staphylococcus aureus 03/11/21 15:37 Mucosa - Nose Influenza Types A,B Direct FA (BERRY) - Final 03/11/21 14:40 Nasal Secretion SARS-CoV-2 Antigen (Rapid) - Final Radiography Diagnostic Testing: Radiology Impression Transesophageal Echocardiogram 03/16/21 11:54 Interpretation Summary Normal LV size. Left ventricular systolic function is normal. The estimated ejection fraction is 60 %. No thrombus is detected in the left atrial appendage. Mild (1+) aortic valve insufficiency. Mild focal aortic valve thickening. No vegetation or thrombus seen. Ordering Physician: German Chandra Performed By: Yudy Isbell RDCS, RVT D/C Instructions Discharge Diet: No restrictions Meaningful Use Info Meaningful Use Diagnoses (Choose all that apply): None applicable Discharge Plan Admission Admit Date/Time: 03/11/21 17:21 Primary Reason for Your Visit: severe sepsis secondary to Acute UTI Attending Provider: Naheed Wray Primary Care Provider: Tereza Physician,No Primary Consulting Providers: Randal Hui Instructions Additional Instructions / Restrictions: Complete your orders as prescribed. Continue to keep yourself hydrated. You need to follow-up with your primary care doctor within 1 to 2 weeks and would need repeat blood work to follow-up on your kidney function. Discharge Orders/Prescriptions Prescriptions: New linezolid 600 mg tablet 600 mg PO Q12H 10 Days Qty: 20 RF: 0 tamsulosin 0.4 mg Capsule 0.4 mg PO DAILY@1730 30 Days Qty: 30 RF: 0 Referrals / Follow Up: Care Physician,No Primary [Primary Care Provider] - Within 2 Weeks Disposition Disposition (needs filled in before D/C Order can be placed): Home, Self Care Charges/Coding Visit Charges Inpatient E&M: 79493 Disch Hosp
--- NOTE | 2021-03-17 13:58 | PN.ID_ITS ---
Physical Exam Narrative Feeling better. No fever, had MAGDA this Am. Const alert and no apparent distress General Appearance: cooperative Resp normal air movement and clear to auscultation bilaterally Cardio regular rate and regular rhythm GI normal to inspection, nondistended, normoactive bowel sounds Extremity no clubbing, cyanosis or edema Skin no rashes or lesions noted ID ID: Route of nutrition/ use of supplements: [] Nutritional Intake: [] IV Site: [] Duenas Catheter: [] Assessment & Plan Assessment/Plan (1) MSSA bacteremia: PLAN: severe sepsis and LUC due to mssa bacteremia - unclear source. Ucx also (+) for mssa, mild pyuria on UA. L thumb with 2 splinter hemorrhages. None on feet. Bcx rapidly cleared. Has tolerated keflex and duricef in the past (2012 in our system), now on cefazolin for best coverage of mssa. Has had covid vaccine x3. TTE and MAGDA neg for veg, ok for home with 10 days po neo ezolid. Wrote rx, d/w primary team. Will follow as needed (2) Severe sepsis: (3) LUC (acute kidney injury):
== END 2021-03-17 17:03 | disposition home or self-care (01) | DRG 871 ==
LOC: ED 17:13 → PCU 17:33
PROVIDERS: Family Medicine; Internal Medicine; Admitting Provider Internal Medicine; Emergency Provider Emergency Medicine; Visit Provider Internal Medicine
DX: A41.01 Sepsis due to Methicillin susceptible Staphylococcus aureus (principal); G93.41 Metabolic encephalopathy; E87.2 Acidosis; N17.9 Acute kidney failure, unspecified; N30.00 Acute cystitis without hematuria; I27.20 Pulmonary hypertension, unspecified; R65.20 Severe sepsis without septic shock; N40.0 Benign prostatic hyperplasia without lower urinary tract symptoms; E86.0 Dehydration; K12.0 Recurrent oral aphthae; Z20.822 Contact with and (suspected) exposure to COVID-19; Z88.0 Allergy status to penicillin
CPT/HCPCS: 36415; 76770; 80048; 80053; 80202; 81001; 83605; 83735; 84100; 84153; 85025; 87040; 87077; 87086; 87088; 87149; 87186; 87426; 87804; 93306; 93312; 93320; 93325; 99251; 99283; J7030; J7040; J7050; A4216; C8929; G0463; J2405

== ENCOUNTER 2021-03-26 15:12 | Outpatient (CLI) | payer MEDICARE, BC, SELFPAY ==
[2021-03-27 07:57] LABS: T4 Free Direct 1.07 ng/dL (0.76-1.46); Thyroid Stim Hormone (TSH) 1.49 uIU/mL (0.358-3.74)
[2021-03-28 17:55] LABS: Thyroid Peroxidase AB 11 IU/mL (0-34)
[2021-03-28 19:03] LABS: Anti-Thyroglobulin AB < 1.0 IU/mL (0.0-0.9); Thyroglobulin, Serum Qt. 10.9 ng/mL (1.4-29.2)
== END 2021-03-26 23:59 | disposition short-term general hospital (02) ==
LOC: MFPLAB 15:18
PROVIDERS: PCP Family Medicine; Referring Provider Family Medicine; Visit Provider Family Medicine
DX: E04.1 Nontoxic single thyroid nodule (principal)
CPT/HCPCS: 36415; 84432; 84439; 84443; 86376; 86800

== ENCOUNTER 2021-04-01 10:20 | Outpatient (CLI) | payer MEDICARE, BC, SELFPAY ==
--- NOTE | 2021-04-01 10:28 | US_ITS ---
STUDY: THYROID ULTRASOUND REASON FOR EXAM: Male, 65 years old. NODULE TECHNIQUE: Ultrasound evaluation of the thyroid was performed with real-time and static zabala-scale imaging. COMPARISON: None. FINDINGS: RIGHT LOBE: The right lobe of the thyroid gland measures 4.7 cm x 1.7 cm x 1.4 cm. There is a homogeneous echotexture. There is a 6 mm x 5 mm x 3 mm solid and cystic nodule in the lower pole of the right lobe. LEFT LOBE: The left lobe of the thyroid gland measures 4.6 cm x 1.5 cm x 1.5 cm. There is a homogeneous echotexture. There is a 4 mm x 4 mm x 5 mm solid and cystic nodule in the lower pole. ISTHMUS: The isthmus measures 3 mm. Incidental note is made of a 7 mm x 4 mm x 3 mm well-defined echogenic nodule posterior and lateral to the left lobe of the thyroid. Correlation with a CT scan is recommended. US/Thyroid IMPRESSION: Solid and cystic nodule seen in the lower pole of both right and left lobe of the thyroid gland. Follow-up is recommended. 7 mm x 4 mm x 3 mm echogenic nodule lateral and posterior to the left lobe of the thyroid. Correlation with a CT scan is recommended. Electronically Signed: Davin Urbina MD at 15:05 EST ,
== END 2021-04-01 23:59 | disposition short-term general hospital (02) ==
PROVIDERS: PCP Family Medicine; Referring Provider Family Medicine; Visit Provider Family Medicine
DX: E04.1 Nontoxic single thyroid nodule (principal)
CPT/HCPCS: 76536

== ENCOUNTER 2021-04-17 13:20 | Outpatient (CLI) | payer MEDICARE, BC, SELFPAY ==
--- NOTE | 2021-04-17 13:42 | CT_ITS ---
EXAM: CT NECK WITH INTRAVENOUS CONTRAST : 1955 CLINICAL INDICATION: mass noted on ultrasound TECHNIQUE: Helically acquired images were obtained of the neck with intravenous contrast. This CT exam was performed using one or more of the following dose reduction techniques: automated exposure control, adjustment of the mA and/or kV according to patient size, and/or use of iterative reconstruction technique. This report was created using [employer] report generation technology. CONTRAST: IV 100mL Isovue-370 COMPARISON: The thyroid ultrasound April 01, 2021 FINDINGS: NASOPHARYNX: Unremarkable. SUPRAHYOID NECK: Unremarkable. Oropharynx, oral cavity, parapharyngeal space and retropharyngeal space are unremarkable. INFRAHYOID NECK: Unremarkable. The larynx, hypopharynx and supraglottis are unremarkable. SUBMANDIBULAR/PAROTID GLANDS: Unremarkable. Glands are normal in size. THYROID: A 6 mm nodular density noted posterior and inferior to the left thyroid lobe likely representing normal parathyroid gland. BONES/JOINTS: No acute fracture. SOFT TISSUES: Unremarkable. VASCULATURE: No acute findings. LYMPH NODES: Unremarkable. No lymphadenopathy. LUNG APICES: Unremarkable as visualized. CT/Soft Tissue Neck WITH Contrast IMPRESSION: 1. 6 mm left parathyroid gland. 2. No evidence of neck mass. Individualized dose optimization techniques were used for this CT. at 1520 Reported and signed by: Karri Dimas MD Electronically Signed: Karri Dimas MD at 15:19 EST ,
[2021-04-17 13:46] LABS: CREATININE FINGERSTICK 1.1 mg/dL (0.70-1.30); EGFR FINGERSTICK > 60.0000 mL/min (>60)
== END 2021-04-17 23:59 | disposition home or self-care (01) ==
LOC: CT 13:23
PROVIDERS: PCP Family Medicine; Visit Provider Family Medicine
DX: R22.1 Localized swelling, mass and lump, neck (principal)
CPT/HCPCS: 70491; Q9967

== ENCOUNTER 2021-05-22 14:26 | Outpatient (CLI) | payer MEDICARE, BC, SELFPAY ==
--- NOTE | 2021-05-22 14:31 | US_ITS ---
STUDY: ULTRASOUND - URINARY BLADDER REASON FOR EXAM: Male, 65 years old. Urinary retention TECHNIQUE: Ultrasound evaluation of the urinary bladder was performed with real-time and static zabala-scale imaging. COMPARISON: None. FINDINGS: There is no right UVJ calculus. There is a visualized right ureteral jet. There is no left UVJ calculus. There is a visualized left ureteral jet. The distended volume of the urinary bladder is 229 ml. The empty volume of the urinary bladder is 165 ml. The bladder wall is within normal limits. The bladder wall measures 3 mm. Prostatic enlargement with indentation of the bladder base. The prostate appears heterogeneous in echotexture. There are no demonstrated bladder calculi. US/Post Void Residual Bladder IMPRESSION: Moderate amount of post void residual. Prostatic enlargement with heterogeneous echotexture. This causes indentation of the bladder base. Electronically Signed: Davin Urbina MD at 15:27 EDT ,
== END 2021-05-22 23:59 | disposition home or self-care (01) ==
LOC: US 14:28
PROVIDERS: PCP Family Medicine; Referring Provider Family Medicine; Visit Provider Family Medicine
DX: R33.9 Retention of urine, unspecified (principal)
CPT/HCPCS: 51798

== ENCOUNTER → 2022-08-05 | Outpatient (CLI) | payer MEDICARE, BC, SELFPAY ==
[2022-08-05 13:08] LABS: Absolute Lymphocyte Count 1.18 X10^3/uL (0.83-4.51); Absolute Neutrophil Count 2.7 X10^3/uL (2.0-7.7); Basophil# 0.01 X10^3/uL; Basophil% 0.2 % (0-1); Eosinophil# 0.06 X10^3/uL; Eosinophils% 1.4 % (0-5); Lymphocyte # 1.18 X10^3/ul (0.83-4.51); Lymphocyte % 27.9 % (19-41); Mean Corp Hgb Conc 33.3 g/dL (32-36); Mean Corpuscular Hgb 31.5 pg (27.0-32.0); Mean Corpuscular Volume 94.4 fL (80-94); Monocyte% 7.1 % (0-10); NRBC Flagged by Analyzer 0 % (0-5); Neutrophil # 2.67 X10^3/uL (2.7-7.7); Neutrophil % 63.2 % (47-70); Platelet Count 158 K/mm3 (150-450); RBC Distribution Width SD 44.6 fl (35.1-43.9); Red Blood Count 4.45 M/mm3 (4.6-6.2); White Blood Count 4.2 K/mm3 (4.4-11.0)
[2022-08-05 14:26] LABS: ALB/GLOB Ratio 1.1 RATIO (0.9-2.4); AST(SGOT) 25 U/L (15-37); Alanine Aminotransfer ALT/SGPT 44 U/L (16-61); Albumin, Serum 3.6 g/dL (3.2-5.0); Alkaline Phosphatase 69 U/L (45-117); Anion Gap 5 (5-15); BUN 13 mg/dL (7-18); BUN/Creat Ratio 13.3 RATIO (10-20); Calcium,Total 8.7 mg/dL (8.5-10.1); Chloride 108 mmol/L (98-107); Creatinine, Serum 0.98 mg/dL (0.70-1.30); EST Glomerular Filtration Rate 81 mL/min (>60); Est Glom Filt Rate - Afr Amer 98 mL/min (>60); Globulin 3.4 g/dL (2.2-4.2); Glucose 120 mg/dL (74-106); PSA,Total - Annual Screen 3.45 ng/mL (0.00-4.00); Potassium 4.1 mmol/L (3.5-5.1); Sodium Level 138 mmol/L (136-145); T4 Free Direct 0.91 ng/dL (0.76-1.46)
[2022-08-06 12:33] LABS: Hemoglobin A1c 5.1 % (3.8-5.6)
== END | disposition home or self-care (01) ==
LOC: MFPLAB 09:41
PROVIDERS: PCP Family Medicine; Visit Provider Family Medicine
DX: R73.09 Other abnormal glucose (principal); E04.2 Nontoxic multinodular goiter; Z12.5 Encounter for screening for malignant neoplasm of prostate
CPT/HCPCS: 36415; 80053; 83036; 84153; 84439; 84443; 85025; G0103

== ENCOUNTER → 2022-08-07 | Outpatient (CLI) | payer MEDICARE, BC, SELFPAY ==
--- NOTE | 2022-08-07 14:28 | US_ITS ---
INDICATION: THYROID nodules EXAMINATION: Ultrasound US Thyroid (eg thyroid, parathyroid, parotid) TECHNIQUE: Moyer scale and color doppler imaging was performed of the thyroid gland. COMPARISON: CT neck 04/17/2021 thyroid ultrasound April 01, 2021. FINDINGS: RIGHT THYROID LOBE: 4.9 x 1.5 x 1.7 cm. Homogeneous echotexture with normal vascularity. [ Nodules: 1. Inferior thyroid 0.5 x 0.5 x 0.6 cm mixed cystic solid isoechoic nodule wider than tall with smooth margins and thin echogenic foci, TI RADS 4, unchanged in size from April 01, 2021.. LEFT THYROID LOBE: 4.7 x 1.5 x 1.6 cm. Homogeneous echotexture with normal vascularity. [ Nodules: 1. Inferior thyroid 0.6 x 0.5 x 0.6 cm mixed mostly solid slightly hypoechoic nodule wider than tall with smooth margins and punctate echogenic foci, TI RADS 5, minimally increased in size from 4 x 4 by 5 mm April 01, 2021 with less cystic component. 2. Posterior superior thyroid 0.4 x 0.4 x 0.7 cm solid hyperechoic nodule wider than tall smooth margins and no calcifications, TI RADS 3, unchanged from the April 01, 2021 3. Additional small TI-RAD 1 benign colloid cyst in the anterior upper pole. ISTHMUS: 0.4 cm.. No thyroid nodules are present. US/Thyroid IMPRESSION: Multinodular thyroid with minimal increase in size of 0.6 cm left inferior thyroid TI-RAD 5 lesion. Continued annual follow-up is recommended. Other less conspicuous thyroid nodules can also be reassessed at that time. Electronically Signed: Dave Britton MD at 10:40 EDT ,
--- NOTE | 2022-08-07 14:32 | US_ITS ---
INDICATION: URINARY RETENTION EXAMINATION: Ultrasound US Post Void Residual Urine/Bladder TECHNIQUE: Clay scale and color doppler imaging was performed of the urinary bladder. COMPARISON: May 22, 2021. FINDINGS: Bladder is anechoic with demonstration of the bilateral ureteral jets. No focal bladder wall thickening. No stones, masses, or wall thickening. Pre-void volume is 273 mL. Post-void volume is 140 mL. Prostate 4.9 x 4.6 x 4.4 cm (51.5 ml) US/Post Void Residual Bladder IMPRESSION: 140 ml post void residual. Anechoic unremarkable bladder. Large prostate Electronically Signed: Dave Britton MD at 8:15 EDT ,
== END | disposition home or self-care (01) ==
LOC: US 14:22
PROVIDERS: PCP Family Medicine; Referring Provider Family Medicine; Visit Provider Family Medicine
DX: N40.1 Benign prostatic hyperplasia with lower urinary tract symptoms (principal); I77.89 Other specified disorders of arteries and arterioles; R33.9 Retention of urine, unspecified
CPT/HCPCS: 51798; 76536

== ENCOUNTER → 2022-08-14 | Outpatient (CLI) | payer MEDICARE, BC, SELFPAY ==
--- NOTE | 2022-08-14 10:54 | ECHOD_ITS ---
Reason For Study: AO Root Enlargement Procedure This was a 2D Doppler, Color Flow transthoracic echocardiogram. Exam performed in department. Left Ventricle Normal LV size. The estimated ejection fraction is 60 %. Normal diastology for age. No regional wall motion abnormalities noted. Right Ventricle Normal RV size. Normal systolic function. Atria Normal left atrium. Normal right atrium. No doppler evidence for ASD. Mitral Valve There is no mitral valve stenosis. Trivial mitral valve insufficiency. Tricuspid Valve There is no tricuspid stenosis. Mild tricuspid valve insufficiency. Pulmonary artery systolic pressure is 35 mmHg. Aortic Valve Trisinus/trileaflet aortic valve. There is no aortic stenosis. Mild (1+) aortic valve insufficiency. Pulmonic Valve There is no pulmonic valvular stenosis. Trivial pulmonic valve insufficiency. Great Vessels Mild to moderately dilated aortic root. Pericardium/Pleural No pericardial effusion. MMode/2D Measurements & Calculations LVIDd: 4.2 cm IVSd: 1.5 cm Ao root diam: 4.7 cm LVIDs: 3.0 cm LVPWd: 1.1 cm LA dimension: 3.9 cm RVDd: 4.6 cm FS: 27.0 % LAV(MOD-bp): 47.1 ml LA A4 area: 16.0 cm2 RA A4 area: 17.5 cm2 LAV(MOD-bp) Indexed: 21.2 ml/m2 LAV(MOD-sp2): 47.2 ml LAV(MOD-sp4): 40.9 ml Time Measurements MV dec time: 0.24 sec Doppler Measurements & Calculations MV E max yuniel: 62.1 cm/sec Lat Peak E' Yuniel: 11.6 cm/sec Med Peak E' Yuniel: 6.5 cm/sec MV A max yuniel: 72.2 cm/sec E/E' lat: 5.4 E/E' med: 9.6 MV E/A: 0.86 MV V2 max: 65.8 cm/sec MV P1/2t max yuniel: 60.7 cm/sec Ao V2 max: 142.7 cm/sec MV max P.7 mmHg MV P1/2t: 81.2 msec Ao max P.2 mmHg MV V2 mean: 37.5 cm/sec MV dec slope: 219.0 cm/sec2 Ao V2 mean: 92.3 cm/sec MV mean P.66 mmHg MVA(P1/2t): 2.7 cm2 Ao mean P.1 mmHg MV V2 VTI: 27.8 cm Ao V2 VTI: 33.9 cm AV (velocity ratio): 0.84 AI max yuniel: 446.4 cm/sec LV V1 max: 118.1 cm/sec PA V2 max: 110.0 cm/sec AI max P.7 mmHg LV V1 max P.6 mmHg PA V2 mean: 74.6 cm/sec LV V1 mean P.1 mmHg AI dec slope: 140.6 cm/sec2 LV V1 mean: 83.0 cm/sec AI P1/2t: 929.5 msec LV V1 VTI: 28.4 cm TR max yuniel: 293.4 cm/sec PI dec slope: 127.1 cm/sec2 TR max P.4 mmHg ECHO/Echo Complete Interpretation Summary The estimated ejection fraction is 60 %. Trivial mitral valve insufficiency. Mild (1+) aortic valve insufficiency. Mild to moderately dilated aortic root. Ordering Physician: Lucas Bolton Referring Physician: Lucas Bolton Performed By: Keshav Velez RCS
== END | disposition home or self-care (01) ==
PROVIDERS: PCP Family Medicine; Referring Provider Family Medicine; Visit Provider Family Medicine
DX: R01.1 Cardiac murmur, unspecified (principal); I77.89 Other specified disorders of arteries and arterioles; N40.1 Benign prostatic hyperplasia with lower urinary tract symptoms
CPT/HCPCS: 93306

== ENCOUNTER 2023-05-15 10:02 | Emergency (ER) | payer MEDICARE, BC, SELFPAY ==
[2023-05-15 10:03] VITALS: BP 144/91; PULSE 65; RESP 14; TEMP 36.8; O2SAT 97; BMI 28.1
--- NOTE | 2023-05-15 10:14 | ED.VIS.DENTA ---
HPI History of Present Illness Chief Complaint: Dental Informant: patient Onset/Context/Timing Onset: Yesterday Context: Gradual Onset Timing: Continuous Quality: Throbbing Location: Left lower premolars Worsened by: Nothing Relieved by: - (Nothing) Associated Symptoms Assocated Symptom - Dental: jaw swelling and face swelling; Negative for fever, cold sensitivity or hot sensitivity Narrative Narrative: Patient presents with left lower dental pain that began last night. Patient states that he woke up today and his lower jaw was more swollen. Patient describes the pain as throbbing. Patient states it is over the left lower premolar area. Patient states nothing makes it better nothing makes it worse. Patient denies any fevers or chills. Patient denies any hot or cold sensitivity. Patient states he broke his tooth off a couple months ago but has not been able to make it to the dentist to have it fixed. PFSH PFSH Medical History BPH (benign prostatic hyperplasia) Home Medications linezolid 600 mg tablet 600 mg PO Q12H 10 days #20 tabs 03/17/21 [Rx Last Taken Unknown] tamsulosin 0.4 mg capsule 0.4 mg PO DAILY@1730 30 days #30 caps 03/17/21 [Rx Last Taken Unknown] clindamycin HCl 300 mg capsule (Cleocin HCl) 300 mg PO Q6H #40 CAPSULES 05/15/23 [Rx Last Taken Unknown] Allergy/AdvReac Type Severity Reaction Status Date / Time Penicillins Allergy Anaphylaxis Verified 05/15/23 10:03 Surgical History no surgical history no surgical history Social History Smoking Status: Never smoker alcohol intake: current details: 2-3 beers nightly substance use type: does not use ROS ROS ED Constitutional Constitutional ED: Denies chills or fever(s) Eyes Eyes: Denies blurry vision or change in vision ENT ENT ED: Denies rhinorrhea or sore throat Cardiovascular Cardiovascular: Denies chest pain or palpitations Respiratory/Chest Respiratory/Chest: Denies cough or dyspnea Gastrointestinal Gastrointestinal: Denies nausea or vomiting Genitourinary Genitourinary ED: Denies dysuria or hematuria Musculoskeletal Musculoskeletal: Denies back pain or neck pain Integumentary Denies abscess or rash Neurologic Neurologic: Reports headache(s); Denies weakness Allergic/Immunologic Allergic/Immunologic ED: Denies mouth swelling or urticaria EXAM Physical Exam Const Vital Signs: 05/15/23 10:03 Temperature 98.3 F Temperature Source Temporal Pulse Rate 65 Respiratory Rate 14 Blood Pressure 144/91 H Blood Pressure Mean 108 Pulse Ox 97 Oxygen Delivery Method Room Air Positive well nourished, well developed and obese General Appearance ED: well developed and NAD Nutritional Appearance: obese HEENT HEENT Narrative: There are dental caries over the right lower molars and left lower premolars. There is some gingival edema around these teeth. There is also some edema of the left lower mandible. There is no fluctuance. There is no evidence of any abscess. There is no sublingual edema. There is no evidence of Sidney's angina. Mouth ED: Yes oral and palatal mucosa normal, Yes lips normal and Yes tongue normal Mouth: oral and palatal mucosa normal, lips normal and tongue normal Teeth and Gingiva: caries and gingiva abnormal Positive for gingival edema Throat: posterior oropharynx normal Eyes PERRL and EOMs intact bilaterally Neck supple and no JVD General: Negative for anterior neck swelling, tenderness or submandibular swelling Neuro oriented x3, CN's II-XII intact bilaterally, moves all extremities, no focal motor deficits and no sensory deficits noted Sensorium / Orientation: alert Motor Exam: strength 5/5 throughout Psych mental status grossly normal MDM MDM MDM Narrative Medical decision making narrative: Patient was advised he has infected dental caries. Since the patient is allergic to penicillin, patient will be started on clindamycin. Patient was given his first dose here. Patient was instructed to follow-up with his dentist in 5 to 7 days. Patient was instructed to continue Tylenol and ibuprofen as needed for pain. Patient understood and was agreeable with the plan. All questions were answered. Discharge Plan Triage Chief Complaint: Dental ED Provider: Hans Boston Dx/Rx/DC Orders Clinical Impression: Infected dental caries Instructions: ED Dental Pain, ED Dental Cavity Prescriptions: New clindamycin HCl [Cleocin HCl] 300 mg capsule 300 mg PO Q6H Qty: 40 0RF No Action linezolid 600 mg tablet 600 mg PO Q12H 10 Days Qty: 20 0RF tamsulosin 0.4 mg Capsule 0.4 mg PO DAILY@1730 30 Days Qty: 30 0RF Primary Care Provider: Lucas Bolton: Lucas Bolton MD [Primary Care Provider] - 5-7 Days Dentist,Your [STAFF PHYSICIAN] - 3-5 Days Disposition Disposition: Home, Self Care
[2023-05-15] MEDS: Clindamycin HCl 150 MG Capsule 300 MG PO (10:30)
--- OUTSIDE RECORDS SUMMARY | 2023-05-15 10:41 | XMS RPT_ITS | CCD ---
Author Name Unknown Address [facility] [place] [address] Organization [facility] Care Team Providers Care Agent Broker Name Role Phone Radha RAMIREZ MD, Justin A Primary Care Provider Colleen vailable Allergies Allergy Classification Reported Allergen(s) Allergy Type Date of Onset Reaction(s) Facility (1 source) Penicillins Propensity to adverse reactions 04-25-2005 [facility] Problems Active Problems Problem Classification Problem Date Documented Date Episodic/Chronic Osteoarthritis (1 source) Osteoarthrosis of the carpometacarpal joint of the thumb; Translations: [Osteoarthritis of first carpometacarpal joint, unspecified] Onset: 11-24-2011 11-24-2011 Chronic Past or Other Problems Problem Classification Problem Date Documented Da te Episodic/Chronic Other connective tissue disease (1 source) Soft tissue lesion of shoulder region; Translations: [Bursopathy, unspecified] Onset: 08-02-2006 08-02-2006 Episodic Results Test Name Value Interpretation Reference Range Facil ity Encounters Encounter Date Encounter Type Care Provider Facility Start: 02-04-2023 Telephone encounter Chu crump MD Work Phone: General Surgery Procedures Date Procedure Procedure Detail Performing Clinician Start: 07-18-2020 Colonoscopy Chu mccain MD Work Phone: Start: 12-04-2011 Lipid 1996 panel - S laura or Plasma Chu Vieyra MD Work Phone: Plan of Treatment Date Care Activity Detail Author Start: 12-02-2025 Urine microalbumin profile DTa P,Tdap,Td Vaccine (3 - Td or Tdap) [facility] Start: 07-18-2025 Colonoscopy Colonoscopy [facility] Start: 07-18-2025 Colorectal Cancer Screening Colorectal Cancer Screening [facility] Start: 10-30-2022 Covid-19 Vaccine ( season) Covid-19 Vaccine () [facility] Start: 10-30-2022 Influenza vaccination Influenza Vacc ine (#1) [facility] Start: 03-01-2022 Advance Directive Discussion Advance Directive Discussion [facility] Start: 03-01-2022 Depression Assessment Depression Ass essment [facility] Start: 11-20-2021 Pneumococcal Vaccine : 65+ (2 - PCV) Pneumococcal Vaccine: 65+ (2 - PCV) [facility] Start: 12-03-2016 Lipid 1996 panel - S laura or Plasma Lipid Screening [facility] Start: 12-03-2016 Prostate Cancer Scre ening Discussion Prostate Cancer Screening Discussion [facility] Start: 12-03-2014 Diabetes Screening Diabetes Screenin g [facility] Start: 2014 RSV Vaccine (1 - 1-d ose 60+ series) RSV Vaccine (1 - 1-dose 60+ series) [facility] Start: 2004 Shingrix Vaccine (1 of 2) Shingrix V accine (1 of 2) [facility] Start: 07-22-1999 Cologuard (FIT-DNA) Cologuard (FIT-D NA) [facility] Start: 07-22-[address] Colonography [facility] Start: 07-22-1999 Fecal Occult Blood Fecal Occult Bloo d [facility] Start: 07-22-1999 Sigmoidoscopy Sigmoidoscopy [facility] Immunizations Immunization Date Immunization Notes Care Provider Fa cility 11-20-2020 influenza virus vaccine, unspecified formulation Chu Vieyra MD Work Phone: [facility] 12-18-2019 influenza, high dose seasonal, preservative-free Chu Vieyra MD Work Phone: [facility] 12-03-2015 tetanus toxoid, redu aubree diphtheria toxoid, and acellular pertussis vaccine, adsorbed Chu Vieyra MD Work Phone: [facility] 11-28-2011 influenza virus vaccine, unspecified formulation Chu Vieyra MD Work Phone: [facility] Work Phone: 03-01-1998 diphtheria and tetan us toxoids, adsorbed for pediatric use Chu Vieyra MD Work Phone: [facility] Payers Date Payer Category Payer Unknown [employer] [id number] 2019-Present [phone] [address] [place] [address] Indemnity [id number] 2019 Medicare MEDICARE MEDICAR E A AND B [id number] 2019-Present [phone] [place] [address] Medicare [id number] Social History Date Type Detail Facility Start: 01-16-2011 Tobacco smoking stat [facility] Never smoked tobacco [facility] Work Phone: Start: 01-16-2011 Tobacco use and exposure Smokeless tobacco non-user [facility] Work Phone: Start: 03-11-2021 Alcohol intake Current drinke r of alcohol (finding) [facility] Start: 05-27-2020 End: 03-11-2021 History of Social function [facility] Start: 05-27-2020 End: 03-11-2021 Tobacco use panel [facility] Adult Depression Screening Assessment 0 [facility] Start: 1955 Sex Assigned At Not on file [facility] Note 02-04-2023 Telephone Encounter - Lilian Devine LPN - 02/04/2023 9:51 AM ESTTelephone Encounter - Hazel Cruz RN - 02/04/2023 9:30 AM EST Note Date & Type Note Facility 02-04-2023 Miscellaneous Notes Formattin g of this note might be different from the original. Last colonoscopy faxed, no specimens. Lilian Devine LPN Nurse from Dr. Crespo's office in [place] calls and is requesting a copy of Pt's last colonoscopy report with accompanying pathology results. Please fax documents to Attn: Dr. Crespo. Thank you- Hazel Cruz RN February 04, 2023 9:32 AM documented in this encounter [facility] History of Past illness Narrative 07-18-2020 Note Date & Type Note Facility documented as of this encounter (statuses as of 02/04/2023) [facility] Summary Purpose Family History No Family History Records Found Advance Directives No Advanced Directives Records Found Additional Source Comments Source Comments (unrecognize d section and content) In the event this informatio n is protected by the Federal Confidentiality of Alcohol and Drug Abuse Patient Records regulations: The Federal rules restrict any use of the information to criminally investigate or prosecute any alcohol or drug abuse patient.[facility] Reason for Visit (unrecogniz ed section and content) Care Teams (unrecognized sec tion and content) (unrecognized sect ion and content) No Status Records Found INFORMATION SOURCE (unrecogn ized section and content) FOR RECORDS PERTAINING TO PATIENTS WHO ARE OR HAVE BEEN ENROLLED IN A CHEMICAL DEPENDENCY/SUBSTANCEABUSE PROGRAM, SOME INFORMATION MAY BE OMITTED. This clinical summary was aggregated from multiple sources. Caution should be exercised in using it in the provision of clinical care. This summary normalizes information from multiple sources, and as a consequence, information in this document may materially change the coding, format and clinical context of patient data. In addition, data may be omitted in some cases. CLINICAL DECISIONS SHOULD BE BASED ON THE PRIMARY CLINICAL RECORDS. [employer] provides no warranty or guarantee of the accuracy or completeness of information in this document.
== END 2023-05-15 10:38 | disposition home or self-care (01) ==
LOC: ED 10:35
PROVIDERS: Emergency Provider Emergency Medicine; PCP Family Medicine; Visit Provider Emergency Medicine
DX: K02.9 Dental caries, unspecified (principal)
CPT/HCPCS: 99282

== ENCOUNTER → 2023-08-03 | Outpatient (CLI) | payer MEDICARE, BC, SELFPAY ==
[2023-08-03 12:20] LABS: Absolute Lymphocyte Count 1.22 X10^3/uL (0.83-4.51); Absolute Neutrophil Count 2.4 X10^3/uL (2.0-7.7); Basophil# 0.01 X10^3/uL; Basophil% 0.3 % (0-1); Eosinophil# 0.07 X10^3/uL; Eosinophils% 1.8 % (0-5); Hematocrit 42.5 % (40-54); Hemoglobin 14.3 g/dL (13.0-16.5); Lymphocyte # 1.22 X10^3/ul (0.83-4.51); Lymphocyte % 30.7 % (19-41); Mean Corp Hgb Conc 33.6 g/dL (32-36); Mean Corpuscular Hgb 31.5 pg (27.0-32.0); Mean Corpuscular Volume 93.6 fL (80-94); Mean Platelet Vol. 11.3 fl (6.2-12.0); Monocyte# 0.31 X10^3/uL; Monocyte% 7.8 % (0-10); NRBC Flagged by Analyzer 0 % (0-5); Neutrophil # 2.36 X10^3/uL (2.7-7.7); Neutrophil % 59.1 % (47-70); Platelet Count 161 K/mm3 (150-450); RBC Distribution Width CV 13.1 % (11.6-14.6); RBC Distribution Width SD 44.5 fl (35.1-43.9); Red Blood Count 4.54 M/mm3 (4.6-6.2)
[2023-08-03 13:01] LABS: ALB/GLOB Ratio 1.1 RATIO (0.9-2.4); AST(SGOT) 19 U/L (15-37); Alanine Aminotransfer ALT/SGPT 34 U/L (16-61); Albumin, Serum 3.8 g/dL (3.2-5.0); Alkaline Phosphatase 58 U/L (45-117); Anion Gap 6 (5-15); BUN 17 mg/dL (7-18); Calcium,Total 8.8 mg/dL (8.5-10.1); Chloride 106 mmol/L (98-107); EST Glomerular Filtration Rate 79 mL/min (>60); Est Glom Filt Rate - Afr Amer 95 mL/min (>60); Globulin 3.4 g/dL (2.2-4.2); Glucose 107 mg/dL (74-106); Potassium 4.4 mmol/L (3.5-5.1); Protein, Total 7.2 g/dL (6.4-8.2); Sodium Level 138 mmol/L (136-145); T4 Free Direct 0.87 ng/dL (0.76-1.46); Thyroid Stim Hormone (TSH) 1.63 uIU/mL (0.358-3.74)
[2023-08-04 18:13] LABS: Hemoglobin A1c 4.8 % (3.8-5.6)
== END | disposition home or self-care (01) ==
LOC: MFPLAB 09:50
PROVIDERS: PCP Family Medicine; Visit Provider Family Medicine
DX: R73.09 Other abnormal glucose (principal); E04.2 Nontoxic multinodular goiter
CPT/HCPCS: 36415; 80053; 83036; 84439; 84443; 85025

== ENCOUNTER → 2024-03-28 | Outpatient (CLI) | payer MEDICARE, BC, SELFPAY ==
--- NOTE | 2024-03-28 12:57 | ECHOD_ITS ---
Reason For Study: DISORDER OF ARTERIES Procedure This was a 2D Doppler, Color Flow transthoracic echocardiogram. Exam performed in department. Left Ventricle Normal LV size. Apical false tendon noted. Left ventricular systolic function is normal. The left ventricular ejection fraction is 60 %. Stage 1 diastolic dysfunction. No regional wall motion abnormalities noted. Right Ventricle Normal RV size. Normal systolic function. Atria Normal left atrium. Normal right atrium. Tricuspid Valve Normal tricuspid valve. Mild (1+) tricuspid valve insufficiency. Pulmonary artery systolic pressure is 30 mmHg. Aortic Valve Trisinus/trileaflet aortic valve. Mild focal aortic valve thickening. Mild (1+) aortic valve insufficiency. Pulmonic Valve Normal pulmonic valve. Great Vessels Mildly dilated aortic root. The pulmonary artery is normal size. Inferior vena cava collapse with respiration. Pericardium/Pleural No pericardial effusion. MMode/2D Measurements & Calculations LVIDd: 4.5 cm IVSd: 1.4 cm LVOT diam: 2.2 cm LVIDs: 3.0 cm LVPWd: 1.1 cm LVOT area: 3.6 cm2 RVDd: 4.6 cm FS: 32.6 % asc Aorta Diam: 4.7 cm LAV(MOD-bp): 57.9 ml LVAd ap4: 34.6 cm2 LAV(MOD-bp) Indexed: 26.4 ml/m2 LVLd ap4: 8.8 cm LAV(MOD-sp2): 61.9 ml EDV(MOD-sp4): 110.0 ml LAV(MOD-sp4): 50.1 ml EDV(sp4-el): 115.3 ml LVAs ap4: 19.0 cm2 LVLs ap4: 7.7 cm ESV(MOD-sp4): 40.0 ml ESV(sp4-el): 39.9 ml EF(MOD-sp4): 63.6 % EF(sp4-el): 65.4 % SV(MOD-sp4): 69.9 ml SV(MOD-sp2): 55.7 ml LVAd ap2: 32.9 cm2 LVLd ap2: 9.0 cm SI(MOD-sp4): 31.9 ml/m2 SI(MOD-sp2): 25.5 ml/m2 EDV(MOD-sp2): 100.2 ml EDV(sp2-el): 101.9 ml LVAs ap2: 20.4 cm2 LVLs ap2: 7.7 cm ESV(MOD-sp2): 44.5 ml ESV(sp2-el): 45.6 ml EF(MOD-sp2): 55.6 % SV(sp4-el): 75.4 ml Ao sinus diam: 3.[address] Junction: 3.3 cm LA A4 area: 18.2 cm2 LA dimension(2D): 3.7 cm RA A4 area: 18.7 cm2 TAPSE: 2.2 cm Time Measurements MV dec time: 0.22 sec Doppler Measurements & Calculations MV E max yuniel: 74.7 cm/sec Lat Peak E' Yuniel: 11.9 cm/sec Med Peak E' Yuniel: 7.8 cm/sec MV A max yuniel: 85.9 cm/sec E/E' lat: 6.3 E/E' med: 9.5 MV E/A: 0.87 Ao V2 max: 148.1 cm/sec AI max yuniel: 406.7 cm/sec MV dec slope: 345.7 cm/sec2 Ao max P.8 mmHg AI max P.2 mmHg Ao V2 mean: 109.6 cm/sec Ao mean P.1 mmHg AI dec slope: 182.8 cm/sec2 Ao V2 VTI: 29.1 cm AI P1/2t: 651.5 msec AV (velocity ratio): 0.88 IGNACIO(I,D): 3.2 cm2 IGNACIO(V,D): 2.9 cm2 LV V1 max: 119.1 cm/sec SV(LVOT): 93.1 ml PA V2 max: 102.7 cm/sec LV V1 max P.7 mmHg LV V1 mean P.3 mmHg LV V1 mean: 86.8 cm/sec LV V1 VTI: 25.5 cm TR max yuniel: 262.0 cm/sec TR max P.5 mmHg ECHO/Echo Complete Interpretation Summary Normal LV size. Left ventricular systolic function is normal. The left ventricular ejection fraction is 60 %. Stage 1 diastolic dysfunction. Mildly dilated aortic root. Ordering Physician: Lucas Bolton Referring Physician: Lucas Bolton Performed By: Unique Alvarez RDCS
--- NOTE | 2024-03-28 12:57 | US_ITS ---
PROCEDURE: THYROID REASON FOR EXAM: Thyroid nodule. TECHNIQUE: Thyroid ultrasound Ultrasound imaging of thyroid gland was obtained.. COMPARISON: None. FINDINGS: Right thyroid lobe measures 4.6 cm x 1.4 cm x 1.8 cm. Left thyroid lobe measures 4.5 cm x 1.7 cm x 1.6 cm. Isthmus thickness is4 mm. Thyroid Size: Normal Background Echotexture: Normal Thyroid Nodules: There is a 5 mm x 4 mm x 4 mm complex nodule in the inferior pole of the right lobe of the thyroid. Several subcentimeter hypoechoic nodules are seen in the left lobe. The largest measures 8 mm x 4 mm x 4 mm. Correlation with a nuclear medicine thyroid scan and uptake recommended. Multiple small lymph nodes are seen in the right-side of the neck. US/Thyroid IMPRESSION: Bilateral subcentimeter nodular densities as described more prominent on the le ft side. Correlation with nuclear medicine uptake and thyroid scan recommended. Reading Location: [place] [address]
== END | disposition home or self-care (01) ==
LOC: US 12:56
PROVIDERS: PCP Family Medicine; Referring Provider Family Medicine; Visit Provider Family Medicine
DX: E04.2 Nontoxic multinodular goiter (principal); R01.1 Cardiac murmur, unspecified; I77.89 Other specified disorders of arteries and arterioles
CPT/HCPCS: 76536; 93306